=== PATIENT | female | born 1955 | race Caucasian/White ===

== ENCOUNTER 2020-05-22 13:49 | Outpatient (RCR) | payer MEDICARE, SELFPAY ==
[2020-05-22 14:02] VITALS: BMI 25.4
[2020-05-22 14:11] VITALS: BMI 25.4
== END 2020-08-06 09:16 | disposition home or self-care (01) ==
LOC: ANHDMC 13:49
PROVIDERS: PCP Family Medicine; Visit Provider Nurse Practitioner
DX: E11.65 Type 2 diabetes mellitus with hyperglycemia (principal); Z71.3 Dietary counseling and surveillance
CPT/HCPCS: 97802

== ENCOUNTER 2020-09-06 11:10 | Observation (INO) | payer MEDICARE, MEDICAID, SELFPAY ==
[2020-09-06] VITALS (11 sets, daily range): BP systolic 112–140; BP diastolic 49–81; PULSE 62–82; RESP 16–18; TEMP 36.1–36.8; O2SAT 93–99; BMI 25.2
--- NOTE | ~2020-09-06 | XR_ITS ---
EXAMINATION: XR chest 2V 09/06/2020 11:48 INDICATION: Chest pain PROCEDURE: 2 view chest COMPARISON: No prior studies for comparison. FINDINGS: The lungs are clear. There is coronary atherosclerosis. The cardiomediastinal silhouette is within normal limits. There are no pleural effusions. There is no pneumothorax suspected. IMPRESSION: 1: NO ACUTE CARDIOPULMONARY DISEASE. Reviewed, dictated and finalized at location A.
--- NOTE | 2020-09-06 11:18 | ECG_ITS ---
Measurements Intervals [place] Rate: 63 P: 41 [place]: 151 QRS: 15 QRSD: 70 T: 67 QT: 411 QTc: 422 Interpretive Statements SINUS RHYTHM DELAYED PRECORDIAL R/S TRANSITION LOW QRS VOLTAGE IN PRECORDIAL LEADS BASELINE ARTIFACT- I, III, AVR, AVL, AVF, V4-V6 BORDERLINE ECG Electronically Signed On 09-06-2020 11:21:37 CDT by Daryn Lau D.O.
[2020-09-06 11:44] LABS: Basophils Absolute Auto 0.1 K/mm3 (0.0-0.1); Basophils Percent Auto 0.5 % (0.2-1.2); Eosinophils Absolute Auto 0.3 K/mm3 (0-0.3); Eosinophils Percent Auto 2.9 % (0-4.4); Hematocrit 38.1 % (37.0-47.0); Hemoglobin 11.5 g/dL (12.0-15.0); Immature Granulocyte Absolute 0.05 K/mm3 (0.00-0.031); Immature Granulocyte Percent A 0.5 % (0-0.5); Lymphocytes Absolute Auto 2.97 K/mm3 (0.9-3.2); Lymphocytes Percent Auto 28.9 % (18.3-44.2); Mean Corpuscular HGB Conc 30.2 g/dl (32-36); Mean Corpuscular Hemoglobin 24.8 pg (26-34); Mean Corpuscular Volume 82.1 fl (80-100); Mean Platelet Volume 10.8 fl (7.4-10.4); Monocytes Absolute Auto 0.6 K/mm3 (0.1-0.6); Monocytes Percent Auto 5.6 % (2.6-8.5); Neutrophils Absolute Auto 6.3 K/mm3 (1.3-6.7); Neutrophils Percent Auto 61.6 % (45.5-73.1); Platelet Count Result 315 k/mm3 (150-375); Red Blood Count 4.64 M/mm3 (4.2-5.4); Red Cell Distribution Width 19.4 % (11.5-14.5); White Blood Count 10.3 K/mm3 (4.5-10.0)
[2020-09-06 11:54] LABS: Prothrombin Time 13.6 Seconds (11.1-14.7)
[2020-09-06 11:55] LABS: Partial Thromboplastin Time 24.1 SECONDS (22.3-36.8)
[2020-09-06 11:58] LABS: Anion Gap 7 mmol/L (8-16); Blood Urea Nitrogen 20 mg/dL (7-17); Carbon Dioxide 23 mmol/L (22-30); Chloride 103 mmol/L (98-107); Estimated CRCL calculation 57 ml/min; Estimated Glomerular Filt Rate > 60; Glucose 253 mg/dL (65-105); Sodium 133 mmol/L (137-145)
--- NOTE | 2020-09-06 12:06 | ED.CHESTPAIN ---
HPI - Chest Pain General Chief Complaint: Chest Pain Stated Complaint: CP Time Seen by Provider: 09/06/20 11:13 Source: patient and RN notes reviewed Limitations: no limitations History of Present Illness HPI narrative: Patient is 65 years old white female referred to our emergency room by her family physician because of retrosternal chest pain. Patient went see her family physician today for regular checkup and follow-up. During examination patient reported retrosternal chest discomfort lasts between few seconds up to 3 minutes, at rest, denies any radiation or shortness of breath. Patient received aspirin then referred to our emergency room for further evaluation. Currently patient is asymptomatic. History of diabetes, hypertension, hyperlipidemia, 5 stents, actively smoking. Related Data Allergies Allergy/AdvReac Type Severity Reaction Status Date / Time morphine AdvReac Gastrointestinal Verified 09/06/20 12:31 Upset nitroglycerin AdvReac Headache Verified 09/06/20 12:31 Review of Systems Review of Systems: Narrative: CONSTITUTIONAL: Denies fever, chills, or sweats. EYES: Denies visual changes, redness, or discharge. ENT: Denies rhinorrhea, congestion, sore throat, or otalgia. CARDIOVASCULAR: Denies chest pain, palpitations, or edema. RESPIRATORY: Denies cough or dyspnea. GASTROINTESTINAL: Denies abdominal pain, nausea, vomiting, or diarrhea. GENITOURINARY: Denies dysuria or hematuria. SKIN: Denies rash or itching. MUSCULOSKELETAL: Denies back pain, joint pain, or myalgia. NEUROLOGIC: Denies headache, numbness, or weakness. PSYCHIATRIC: Denies anxiety or depression. PMFSH Social History Social History Smoking status: Former smoker Alcohol intake: never Spiritual care concerns: No Exam Narrative: Exam Narrative: General appearance: Well-developed, well-nourished Skin: Normal color Head: Normocephalic, nontraumatic Eyes: Clear conjunctiva ENT: Oropharynx normal, ears normal, nose normal Neck: Supple, nontender Chest and respiratory: Airway patent, no respiratory distress, no accessory muscle use, diffuse tenderness of the chest mainly at the sternum with light palpation Heart: Regular rate/rhythm Abdomen: Soft, nontender, no organomegaly, quiet bowel sounds Vascular: Normal peripheral pulses, normal capillary refill. Musculoskeletal: Normal range of motion, nontender back Neurologic: Alert and oriented ?3, SENIOR COMMERCIAL LOAN OFFICER is normal as tested, no gross motor deficit Course Course Emergency Course: Stable, resolved, improved Consultations Consultation #1: DR KERR Date: 09/06/20 Time: 12:47 Vital Signs Vital signs: Vital Signs Temperature 36.8 C 09/06/20 11:09 Pulse Rate 63 09/06/20 11:09 Respiratory Rate 16 09/06/20 11:09 Blood Pressure 140/76 09/06/20 11:09 Pulse Oximetry 98 09/06/20 11:09 Temperature 36.8 C 09/06/20 11:09 Pulse Rate 64 09/06/20 11:19 Respiratory Rate 16 09/06/20 11:09 Blood Pressure 140/76 09/06/20 11:09 Pulse Oximetry 98 09/06/20 11:09 MDM - Chest Pain MDM Narrative Medical decision making narrative: Patient presents with retrosternal chest pain, physical exam showed diffuse tenderness across the chest mainly at the sternum. Musculoskeletal is a possibility. Because patient multiple risk factors of coronary artery disease. Labs, chest x-ray ordered. Further plan to follow Differential Diagnosis Differential diagnosis: Likely stable angina, atypical chest pain and costochondritis Lab Data Result diagrams: 09/06/20 11:30 09/06/20 11:30 Labs: Lab Results 09/06/20 09/06/20 09/06/20
[2020-09-06 12:09] LABS: Troponin I < 0.012 ng/mL (0.000-0.034)
--- NOTE | 2020-09-06 12:44 | PC.NURSE ---
Patient's lunch tray ordered for in patient room #232
[2020-09-06 13:16] LABS: Lipase 135 U/L (23-300)
--- NOTE | 2020-09-06 13:30 | PC.NURSE ---
Cardiology at bedside at this time. Will take patient to room 232 after assessment is complete
--- NOTE | 2020-09-06 13:38 | PM.IMHP ---
H&P: HPI History of Present Illness Date/Time: 09/06/20 13:38 this is a 65-year-old female patient who has a history of having coronary artery disease. She has a history having 5 cardiac stents. The patient stated that she has been having chest pain on and off for a long time. She has been seen by her ball truing machine operator who is at [facility] and she stated that she recently had a stress test and it was established that she did not have any further heart disease. However her ball truing machine operator dr. pacheco is out of town today. However the patient was seen her primary care doctor for unrelated issues. She was there for a regular checkup. The patient had substernal pain that was reproducible with touch. The pain lasted anywhere from a few seconds at 3 minutes. The patient denies any shortness of breath. The patient was sitting in the doctor's office when she developed the pain. She denies any strenuous activity. No recent injury. First troponin is negative. She no longer has any discomfort. The patient was sent to the emergency room from the primary care doctor's office. She received an aspirin then was referred to the emergency room for further evaluation. The patient stated that she has GERD and she also has history of pancreatitis in the past but this is a different type of pain. The patient recently had some moles removed from her chest which are felt dyeing machine tender. Have some periods of dizziness and presyncopal episodes but she has discussed this with her ball truing machine operator in the past. The patient also walks with a cane and has chronic back pain. Has COPD but this is not related to any type of pain she had today. Her chest x-ray was read as no acute cardiopulmonary disease. The patient was given Zofran and Tylenol in the emergency room. She stated that Her blood sugars are typically under control. However blood sugars 253 today. As sinus rhythm. Baseline artifact. Borderline EKG. Cardiology has been consulted. The patient is being admitted for observation status on the date of service of 09/06/2020. Chief Complaint: Chest pain Review of Systems Review of Systems: All systems reviewed & are unremarkable except as noted in HPI and below Constitutional: Constitutional: Reports as per HPI and Reports no additional constitutional complaints Eyes: Eyes: Reports as per HPI and Reports no additional eye complaints ENT: Reports system reviewed and no additional complaints, except as documented and Reports Normal hearing present Cardiovascular: Cardiovascular: Reports no additional cardiovascular complaints Respiratory: Respiratory: Reports no additional respiratory complaints and Reports no additional respiratory complaints Gastrointestinal: Gastrointestinal: Reports as per HPI and Reports no additional gastrointestinal complaints Musculoskeletal: Musculoskeletal: Reports no additional musculoskeletal complaints Integumentary/Breasts: Skin/Breast: Reports system reviewed and no additional complaints, except as docu and Reports as per HPI Neurologic: Reports system reviewed and no additional complaints, except as documented, Reports as per HPI and Reports Normal hearing present Psychiatric: Psychiatric: Reports no additional psychiatric complaints and Reports as per HPI Endocrine: Endocrine: Reports no additional endocrine complaints Hematologic/Lymphatic: Hematologic/Lymphatic: Reports no additional hematologic/lymphatic complaints Allergic/Immunologic: Allergic/Immunologic: Reports no additional allergic/immunologic complaints [facility] Past Medical History Medical History (Updated 09/06/20 @ 13:59 by Katherine Torres NP) CAD (coronary artery disease) Chronic GERD COPD (chronic obstructive pulmonary disease) DM2 (diabetes mellitus, type 2) History of myocardial infarction History of pancreatitis Hyperlipidemia Hypertension Obstructive sleep apnea Intolerance of CPAP Tobacco abuse Surgical History Surgical History (Updated
--- NOTE | 2020-09-06 13:51 | ADMGEN ---
This patient, Maureen Calzada, was admitted to IMU Room 232-01. Patient/family oriented to hospital policies and general routines including ID bracelet, bed and alarms, visiting hours, pain management, procedures, bathroom and other care routines, personal items, smoking policy, room service/diet, and visiting hours. Information on how to activate the Rapid Response Team has been discussed. Patient/Family are encouraged to report perceived risks to care and to ask questions if they do not understand what they are told or what they should do.
--- NOTE | 2020-09-06 13:52 | PM.CNCAR ---
Assessment and Plan Assessment and plan (1) Chest pain: Qualifiers: Chest pain type: unspecified Qualified Code(s): R07.9 - Chest pain, unspecified Code(s): R07.9 - Chest pain, unspecified Status: Acute Assessment and Plan: Patient is a 65-year-old white woman with history of coronary artery disease status post PCI with 5 stents (last approximately 2-3 years ago), status post myocardial infarction (2008), hypertension, hyperlipidemia, diabetes mellitus, active tobacco dependence (quit 08/28/2020 but still with occasional cigarettes; 20 pack-year), peripheral arterial disease, obstructive sleep apnea (intolerant of CPAP), COPD, pancreatitis, GERD, who is seen in cardiac consultation for chief complaint of chest pain. -Patient presents with brief atypical chest pain, with lower midsternal tenderness. Her presenting chest pain is currently resolved. -initial troponin I negative for injury and will continue to trend troponin I. -EKG demonstrated normal sinus rhythm, poor R-wave progression, without acute injury. - Began aspirin and continued her outpatient Plavix, in setting of her prior [place] and coronary stents with current atypical chest pain. - continued atorvastatin and obtain fasting lipid panel. -She reports that she had a good stress test approximately 1 month ago. -Obtain records with nursing assistance from [facility] Dr. Venkatesh Remy regarding patient's recent stress test approximately 1 month ago and recent echo, as well as last office note. -She will need close follow-up with her primary finished goods stock clerk a [facility], Dr. Venkatesh Remy. (2) CAD (coronary artery disease): Code(s): I25.10 - Atherosclerotic heart disease of [place] coronary artery without angina pectoris Status: Chronic Assessment and Plan: - she has a history of coronary artery disease status post PCI with 5 stents (last approximately 2-3 years ago), status post myocardial infarction (2008). - Began aspirin and continued her outpatient Plavix, in setting of her prior [place] and coronary stents with current atypical chest pain. - continued atorvastatin and obtain fasting lipid panel. - She reports that she had a good stress test approximately 1 month ago, and will obtain records. (3) Hyperlipidemia: Code(s): E78.5 - Hyperlipidemia, unspecified Status: Chronic Assessment and Plan: - continued atorvastatin and obtain fasting lipid panel. (4) Hypertension: Code(s): I10 - Essential (primary) hypertension Status: Chronic Assessment and Plan: - Blood pressure well controlled. - continue to monitor on current regimen. History of Present Illness History of Present Illness Consult date/time: 09/06/20 13:52 Patient is a 65-year-old white woman with history of coronary artery disease status post PCI with 5 stents (last approximately 2-3 years ago), status post myocardial infarction (2008), hypertension, hyperlipidemia, diabetes mellitus, active tobacco dependence (quit 08/28/2020 but still with occasional cigarettes; 20 pack-year), peripheral arterial disease, obstructive sleep apnea (intolerant of CPAP), COPD, pancreatitis, GERD, who is seen in cardiac consultation for chief complaint of chest pain. Her primary finished goods stock clerk is Dr. Venkatesh Remy with [facility]. Patient reports she was at her family physician for regular checkup when she had onset of lower midsternal chest discomfort which was intermittent lasting anywhere from 3 seconds to 3 minutes at a time. She reports her last chest discomfort occurred at noon on 09/06/2020. She denied any radiation of the discomfort but had some associated dyspnea. She received aspirin and was transferred to the emergency department for further evaluation. She reports that she had a good stress test approximately 1 month ago and also had a recent echo. She denies any change in her chronic exertional dyspnea. She byers
[2020-09-06 16:01] LABS: Hemoglobin A1C 7.7 % (<5.7)
[2020-09-06 16:16] LABS: Glucose Point of Care 153 (65-105)
[2020-09-06 16:23] LABS: Troponin I < 0.012 ng/mL (0.000-0.034)
[2020-09-06] MEDS: INSULIN GLARGINE (*BKC) 100 UNITS/ML 50 UNITS SUB-Q (16:58)
[2020-09-06] MEDS: glipiZIDE 5 MG TABLET PO (16:58)
[2020-09-06] MEDS: ALPRAZolam (*CRX) 0.5 MG TABLET 1 MG PO (17:12)
[2020-09-06 18:01] LABS: Troponin I < 0.012 ng/mL (0.000-0.034)
[2020-09-06 20:01] LABS: Glucose Point of Care 243 (65-105)
[2020-09-06] MEDS: ATORVASTATIN 40 MG TABLET PO (20:52)
[2020-09-06] MEDS: FAMOTIDINE 20 MG/2 ML VIAL IV PUSH (20:52)
[2020-09-06] MEDS: GABAPENTIN 100 MG CAPSULE PO (20:53)
[2020-09-06] MEDS: traZODone HCL 50 MG TABLET 100 MG PO (20:53)
[2020-09-07] VITALS (7 sets, daily range): BP systolic 99–114; BP diastolic 45–53; PULSE 73–90; RESP 18; TEMP 36.1–36.6; O2SAT 91–98
[2020-09-07 05:49] LABS: Basophils Absolute Auto 0.1 K/mm3 (0.0-0.1); Basophils Percent Auto 0.8 % (0.2-1.2); Eosinophils Absolute Auto 0.3 K/mm3 (0-0.3); Eosinophils Percent Auto 3.5 % (0-4.4); Hematocrit 36.6 % (37.0-47.0); Hemoglobin 11.1 g/dL (12.0-15.0); Immature Granulocyte Absolute 0.03 K/mm3 (0.00-0.031); Immature Granulocyte Percent A 0.4 % (0-0.5); Lymphocytes Absolute Auto 2.89 K/mm3 (0.9-3.2); Lymphocytes Percent Auto 34.8 % (18.3-44.2); Mean Corpuscular HGB Conc 30.3 g/dl (32-36); Mean Corpuscular Hemoglobin 24.4 pg (26-34); Mean Corpuscular Volume 80.6 fl (80-100); Mean Platelet Volume 10.8 fl (7.4-10.4); Monocytes Absolute Auto 0.6 K/mm3 (0.1-0.6); Monocytes Percent Auto 7.1 % (2.6-8.5); Neutrophils Absolute Auto 4.4 K/mm3 (1.3-6.7); Neutrophils Percent Auto 53.4 % (45.5-73.1); Platelet Count Result 297 k/mm3 (150-375); Red Blood Count 4.54 M/mm3 (4.2-5.4); Red Cell Distribution Width 19.2 % (11.5-14.5); White Blood Count 8.3 K/mm3 (4.5-10.0)
--- NOTE | 2020-09-07 06:00 | ECG_ITS ---
Measurements Intervals [place] Rate: 81 P: 51 [place]: 133 QRS: -2 QRSD: 81 T: 54 QT: 377 QTc: 439 Interpretive Statements SINUS RHYTHM LOW QRS VOLTAGE- DIFFUSE LEADS BORDERLINE R WAVE PROGRESSION, ANTERIOR LEADS BASELINE ARTIFACT- I, II, III BORDERLINE ECG Electronically Signed On 09-07-2020 10:26:30 CDT by Daryn Lau D.O.
[2020-09-07 06:03] LABS: Anion Gap 8 mmol/L (8-16); Blood Urea Nitrogen 21 mg/dL (7-17); Calcium 9.4 mg/dL (8.4-10.2); Carbon Dioxide 28 mmol/L (22-30); Chloride 105 mmol/L (98-107); Cholesterol 108 mg/dL (0-200); Estimated CRCL calculation 50 ml/min; Estimated Glomerular Filt Rate > 60; Glucose 134 mg/dL (65-105); HDL Direct 34 mg/dL; Magnesium 1.7 mg/dL (1.6-2.3); Potassium 3.8 mmol/L (3.4-5.0); Sodium 141 mmol/L (137-145); Triglycerides 163 mg/dL (<150)
[2020-09-07 06:14] LABS: LDL Cholesterol Direct 48 mg/dL
[2020-09-07] MEDS: GABAPENTIN 100 MG CAPSULE PO (06:21)
[2020-09-07] MEDS: FENOFIBRATE 160 MG TABLET PO (07:52)
[2020-09-07] MEDS: DULoxetine HCL 60 MG CAPSULE.DR PO (07:52)
[2020-09-07] MEDS: FLUTICASONE PROPIONATE 0.05% NA SPR 16 GM BTL (*BKC) 2 SPRAY NASAL (07:52)
[2020-09-07] MEDS: FAMOTIDINE 20 MG/2 ML VIAL IV PUSH (07:52)
[2020-09-07] MEDS: CLOPIDOGREL BISULFATE 75 MG TABLET PO (07:52)
[2020-09-07] MEDS: ASPIRIN 81 MG CHEWABLE TABLET PO (07:52)
[2020-09-07] MEDS: PANTOPRAZOLE 40 MG TABLET PO (07:52)
[2020-09-07] MEDS: lisinopriL 5 MG TABLET PO (07:52)
[2020-09-07] MEDS: INSULIN GLARGINE (*BKC) 100 UNITS/ML 50 UNITS SUB-Q (07:55)
[2020-09-07 07:58] LABS: Glucose Point of Care 110 (65-105)
[2020-09-07] MEDS: glipiZIDE 5 MG TABLET PO (07:58)
--- NOTE | 2020-09-07 09:20 | PM.PNCARD ---
Progress Note: A&P Assessment and Plan (1) CAD (coronary artery disease): Code(s): I25.10 - Atherosclerotic heart disease of [place] coronary artery without angina pectoris Status: Chronic Assessment and Plan: -Patient presents with brief atypical chest pain, with lower midsternal tenderness. Her presenting chest pain is currently resolved. -3 sets of cardiac enzymes negative for injury -no acute EKG changes - Cont aspirin and her outpatient Plavix. - continue atorvastatin. LDL at the goal -She reports that she had a good stress test approximately 1 month ago. -She will need to see her primary cotton ball bagger at [facility], Dr. Venkatesh Remy for fu as scheduled next week. (2) Hyperlipidemia: Code(s): E78.5 - Hyperlipidemia, unspecified Status: Chronic Assessment and Plan: Lipid panel looks good. Cont statin. TG are borderline for which pt could take 1-2 capsules of fish oil OTC (3) Hypertension: Code(s): I10 - Essential (primary) hypertension Status: Chronic Assessment and Plan: - Blood pressure well controlled. - continue to monitor on current regimen. Pt appears stable from cardiac standpoint. Disposition per PC. Fu with her primary cotton ball bagger at [facility], Dr. Venkatesh Remy as scheduled next week Subjective Date/time seen: 09/07/20 Patient was seen and examined, chart reviewed, case discussed with nurse. Pt feels much better today. No CP, SOB or palpitations. Eager to go home. States that has fu with her primary cotton ball bagger next week. Review of Systems Review of Systems: All systems reviewed & are unremarkable except as noted in HPI and below Constitutional: Constitutional: Reports as per HPI Eyes: Eyes: Reports as per HPI ENT: Reports system reviewed and no additional complaints, except as documented and Reports as per HPI Cardiovascular: Cardiovascular: Reports as per HPI Respiratory: Respiratory: Reports as per HPI Gastrointestinal: Gastrointestinal: Reports as per HPI Genitourinary: Genitourinary: Reports as per HPI Musculoskeletal: Musculoskeletal: Reports as per HPI Exam Const: General: no acute distress Nutritional Appearance: well nourished Orientation/consciousness: patient oriented x3 HENMT: Head: normal to inspection and atraumatic Ears: hearing grossly normal bilaterally Face and sinus: normal facial exam Eyes: General: appearance normal, both eyes and all related structures Pupils: Equal, round and reactive pupils present EOM: EOMs intact bilaterally Neck: Neck: supple Chest: Chest palpation & inspection: normal inspection of the chest Resp: Effort & Inspection: normal respiratory effort and no respiratory distress Auscultation: clear to auscultation bilaterally Cardio: Jugular venous distension: no JVD Rate: regular rate Heart sounds: S1 normal heart sound present, S2 normal heart sound present and no murmurs Peripheral pulses: Peripheral pulses 2+ throughout GI: GI Palp: No abdominal tenderness Auscultation: normal bowel sounds Skin: General skin exam: normal color Neuro: General: patient oriented x3 Cranial nerves: Yes Equal, round and reactive pupils present Extrem: General: normal to inspection and no clubbing, cyanosis or edema Objective Data Vital Signs Vital Signs: Vital Signs - 24 hr 09/06/20 11:09 09/06/20 11:19 09/06/20 12:23 Temperature 36.8 C Pulse Rate 63 64 69 Respiratory Rate 16 18 Blood Pressure 140/76 121/81 Pulse Oximetry 98 97 09/06/20 13:20 09/06/20 13:45 09/06/20 13:50 Temperature 36.2 C L Pulse Rate 62 65 65 Respiratory Rate 18 16 Blood Pressure 121/78 112/63 Pulse Oximetry 99 99 09/06/20 16:00 09/06/20 18:00 09/06/20 19:35 Temperature 36.2 C L Pulse Rate 73 79 Respiratory Rate 18 Blood Pressure 115/50 L Pulse Oximetry 97 93 09/06/20 20:00 09/06/20 22:00 09/07/20 00:00 Temperature 36.1 C L 36.4 C
--- NOTE | 2020-09-07 10:18 | PM.DS ---
DS: Admitting Diagnosis Admitting Diagnosis Admitting Diagnosis: Chest pain DS: Discharge Diagnosis Discharge Diagnosis (1) Chest pain: Qualifiers: Chest pain type: unspecified Qualified Code(s): R07.9 - Chest pain, unspecified Code(s): R07.9 - Chest pain, unspecified Status: Acute Assessment and Plan: Discharge Summary (Date of service 09/07/20): Ms. Calzada is a 65 y.o. female with PMH significant for CAD s/p PCI with 5 stents (last 2-3 years ago) and followed by Dr. Remy with [facility], hx of [place] in 2008, hypertension, hyperlipidemia, T2DM, active tobacco dependence w/ 20 pack-year smoking hx, peripheral arterial disease, SUSAN w/ CPAP intolerance, COPD, GERD who presented to the emergency department on 09/06/20 for the evaluation of chest pain. She was at an appointment with her primary care doctor when she reported retrosternal chest discomfort, not associated with exertion, lasting for a few seconds to 3 minutes. She had no associated dyspnea, radiation, or pleuritic component. She was given aspirin and sent to the emergency department for further care. Vitals were stable on arrival to the emergency department. WBC 10,300, Hb 11.5, Hct 38.1. sodium 133, troponin I <0.012. EKG demonstrated sinus rhythm with no acute ST/T changes. CXR was unremarkable. Cardiology was consulted and she was admitted to the IMU under the hospitalist service. Her pain was reproducible on exam. Troponin at 3 and 6 hours was <0.012. Repeat EKG had no concerning change. Lipase was normal. Telemetry was monitored and demonstrated sinus rhythm. She reported that she had a recent stress test per her retail customer service specialist, Dr. Remy, approximately 1 month ago for these complaints which she noted was normal. Her pain resolved. She was seen by cardiology who recommended that she begin aspirin in addition to her plavix. LDL was at target. Her pain resolved completely. Her chest pain was felt atypical, not secondary to acute coronary syndrome, and she was felt stable for discharge from a cardiology standpoint. She was discharged in hemodynamically stable condition on the morning of 09/07/20. Worrisome signs and symptoms which would warrant return to the emergency department were discussed and she verbalized understanding. She was advised to keep her follow-up appointment with Dr. Remy which she reported was next week. Smoking cessation was advised. (2) CAD (coronary artery disease): Code(s): I25.10 - Atherosclerotic heart disease of [place] coronary artery without angina pectoris Status: Chronic Assessment and Plan: She reported a recent stress test approximately 1 month ago which was good. Her primary retail customer service specialist is Dr. Remy. Cardiology was consulted and recommended she continue plavix and add aspirin. Atorvastatin was continued and LDL is at goal. (3) DM2 (diabetes mellitus, type 2): Code(s): E11.9 - Type 2 diabetes mellitus without complications Status: Chronic Assessment and Plan: Hemoglobin A1c was 7.7%. Blood sugars were reasonable. Farxiga and glipizide were continued at discharge and she needs to follow-up with her PCP for diabetes management. (4) Hypertension: Code(s): I10 - Essential (primary) hypertension Status: Chronic Assessment and Plan: Blood pressures were at target. Her home antihypertensive regimen of lisinopril was continued. (5) COPD (chronic obstructive pulmonary disease): Code(s): J44.9 - Chronic obstructive pulmonary disease, unspecified Status: Chronic Assessment and Plan: Not in acute exacerbation. Albuterol was continued. (6) Hyperlipidemia: Code(s): E78.5 - Hyperlipidemia, unspecified Status: Chronic Assessment and Plan: Atorvastatin was continued. (7) Chronic GERD: Code(s): K21.9 - Gastro-esophageal reflux disease without esophagitis Status: Chronic Assessment and Plan
== END 2020-09-07 11:11 | disposition home or self-care (01) ==
LOC: ANHED 11:21 → ANHIMU 12:42
PROVIDERS: Nurse Practitioner; Physician Assistant; Admitting Provider Internal Medicine; Emergency Provider Emergency Medicine; PCP Family Medicine; Visit Provider Hospitalist
DX: R07.89 Other chest pain (principal); I25.10 Atherosclerotic heart disease of native coronary artery without angina pectoris; I10 Essential (primary) hypertension; I25.2 Old myocardial infarction; E11.9 Type 2 diabetes mellitus without complications; E78.5 Hyperlipidemia, unspecified; F17.210 Nicotine dependence, cigarettes, uncomplicated; G47.33 Obstructive sleep apnea (adult) (pediatric); J44.9 Chronic obstructive pulmonary disease, unspecified; K21.9 Gastro-esophageal reflux disease without esophagitis; Z95.5 Presence of coronary angioplasty implant and graft; Z79.02 Long term (current) use of antithrombotics/antiplatelets; Z79.4 Long term (current) use of insulin
CPT/HCPCS: 36415; 71046; 80048; 80061; 82948; 83036; 83690; 83735; 84484; 85025; 85610; 85730; 93005; 96374; 96376; 99285; A9270; G0378; J1815

== ENCOUNTER 2023-11-05 14:43 | Emergency (ER) | payer OTHER, SELFPAY ==
[2023-11-05 14:52] VITALS: BP 109/59; PULSE 77; RESP 16; TEMP 36.4; O2SAT 97
== END 2023-11-05 18:21 | disposition left against medical advice (07) ==
PROVIDERS: PCP Family Medicine
DX: R42 Dizziness and giddiness (principal)
CPT/HCPCS: 99199

== ENCOUNTER 2024-06-29 09:41 | Outpatient (CLI) | payer MEDICARE, MEDICAID, SELFPAY ==
--- NOTE | ~2024-06-29 | CT_ITS ---
EXAMINATION: CT diagnostic chest w con DATE: 06/29/2024 11:01 INDICATION: LUNG CA TECHNIQUE: Computed tomography (CT) of the chest was performed without intravenous contrast. Addition al 3D reconstructions utilizing coronal maximum intensity projection (MIP) were performed. Automated exposure control and iterative reconstruction technique were employed. The dose-length product was 13 3.97 mGy-cm. COMPARISON: 12/09/2018 FINDINGS: Change of interval right lower lobectomy with volume loss in the right hemithorax and suture lines at the right hilum. There is mild linear pleural parenchymal scarring in the right upper lobe. No pneum onia, pulmonary edema, suspicious pulmonary nodules or pleural effusion. Heart size is normal. Athero sclerotic coronary artery calcifications. Thoracic aorta is normal in caliber with no dissection. No pathologically enlarged thoracic lymphadenopathy. A couple likely benign subcentimeter nodules and co arse calcification in the left thyroid lobe. Small amount of pneumobilia likely related to prior chol ecystectomy and hysterectomy with surgical clips the gallbladder fossa. Thoracic levocurvature with m ild spondylosis. IMPRESSION: 1. Status post right lower lobectomy likely for reported lung cancer. No evident recurrent or metasta tic disease. Reviewed, dictated and finalized at location B. 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 Status post right lower lobectomy likely for reported lung cancer. No eviden t recurrent or metastatic disease.
[2024-06-29 10:46] LABS: Basophils Absolute Auto 0.1 K/mm3 (0.0-0.1); Basophils Percent Auto 0.9 % (0.2-1.2); Eosinophils Absolute Auto 0.3 K/mm3 (0-0.3); Eosinophils Percent Auto 3.7 % (0-4.4); Hematocrit 42.4 % (37.0-47.0); Hemoglobin 12.2 g/dL (12.0-15.0); Immature Granulocyte Absolute 0.02 K/mm3 (0.00-0.031); Immature Granulocyte Percent A 0.3 % (0-0.5); Lymphocytes Absolute Auto 2.59 K/mm3 (0.9-3.2); Lymphocytes Percent Auto 36.9 % (18.3-44.2); Mean Corpuscular HGB Conc 28.8 g/dl (32-36); Mean Corpuscular Hemoglobin 23.5 pg (26-34); Mean Corpuscular Volume 81.7 fl (80-100); Monocytes Absolute Auto 0.5 K/mm3 (0.1-0.6); Monocytes Percent Auto 6.6 % (2.6-8.5); Neutrophils Absolute Auto 3.6 K/mm3 (1.3-6.7); Neutrophils Percent Auto 51.6 % (45.5-73.1); Platelet Count Result 199 k/mm3 (150-375); Red Blood Count 5.19 M/mm3 (4.2-5.4); Red Cell Distribution Width 19.9 % (11.5-14.5)
[2024-06-29 10:54] LABS: Estimated Glomerular Filt Rate > 60
[2024-06-29 11:20] LABS: Iron 48 ug/dL (37-170)
[2024-06-29 11:26] LABS: Platelet Estimate Adequate (Adequate)
[2024-06-29 11:27] LABS: Anisocytosis 1+; Burr Cells 1+; Hypochromasia 2+; Ovalocytes 1+; Polychromasia 1+
[2024-06-29 11:28] LABS: Schistocytes None Seen
[2024-06-29 11:29] LABS: Percent Iron Saturation 11 % (20-50)
[2024-06-29 11:58] LABS: Ferritin 7.68 ng/mL (11.1-264)
[2024-06-29 12:12] LABS: Hepatitis C Virus Antibody Negative (Negative)
[2024-06-29 13:10] LABS: Creatinine Urine 45.1 mg/dL
[2024-06-29 13:14] LABS: MALB Creatinine Ratio 168.5 mg/g (0-30)
[2024-06-29 13:31] LABS: Hemoglobin A1C 12.7 % (<5.7)
== END 2024-06-29 09:42 | disposition home or self-care (01) ==
PROVIDERS: PCP Family Medicine; Visit Provider Registered Nurse
DX: C34.31 Malignant neoplasm of lower lobe, right bronchus or lung (principal); E11.42 Type 2 diabetes mellitus with diabetic polyneuropathy; F01.50 Vascular dementia, unspecified severity, without behavioral disturbance, psychotic disturbance, mood disturbance, and anxiety; K21.9 Gastro-esophageal reflux disease without esophagitis; N32.81 Overactive bladder; M25.552 Pain in left hip; D64.9 Anemia, unspecified
CPT/HCPCS: 36415; 71260; 82043; 82728; 83036; 83540; 83550; 85025; 85055; 86803; Q9967

== ENCOUNTER 2024-11-24 11:41 | Outpatient (CLI) | payer MEDICARE, MEDICAID, SELFPAY ==
--- NOTE | ~2024-11-24 | MM_ITS ---
EXAMINATION: MM screening ron BI w tayler HISTORY: Screening TECHNIQUE: Craniocaudal and mediolateral oblique 3-D tomosynthesis images were obtained and synthetic 2-D images were generated. CAD analysis was submitted and interpreted. COMPARISON: Comparison to multiple prior studies sequentially, with oldest reviewed study dated 07/2017. BREAST PARENCHYMAL COMPOSITION: Not dense: There are scattered areas of fibroglandular density. FINDINGS: There is no evidence of suspicious mass, calcification, or architectural distortion to sugg est malignancy in either breast. There has been no suspicious interval change. IMPRESSION: 1. No mammographic evidence of malignancy. 2. Recommend routine screening mammography in one year. BI-RADS Category 1: Negative Reviewed, dictated and finalized at location B.
[2024-11-24 12:25] LABS: Basophils Absolute Auto 0.1 K/mm3 (0.0-0.1); Basophils Percent Auto 0.7 % (0.2-1.2); Eosinophils Absolute Auto 0.4 K/mm3 (0-0.3); Eosinophils Percent Auto 4.1 % (0-4.4); Hematocrit 37.6 % (37.0-47.0); Hemoglobin 10.5 g/dL (12.0-15.0); Immature Granulocyte Absolute 0.05 K/mm3 (0.00-0.031); Immature Granulocyte Percent A 0.5 % (0-0.5); Lymphocytes Absolute Auto 2.77 K/mm3 (0.9-3.2); Lymphocytes Percent Auto 27.7 % (18.3-44.2); Mean Corpuscular HGB Conc 27.9 g/dl (32-36); Mean Corpuscular Hemoglobin 23.1 pg (26-34); Mean Corpuscular Volume 82.6 fl (80-100); Mean Platelet Volume 11.3 fl (7.4-10.4); Monocytes Absolute Auto 0.7 K/mm3 (0.1-0.6); Monocytes Percent Auto 6.8 % (2.6-8.5); Neutrophils Percent Auto 60.2 % (45.5-73.1); Platelet Count Result 222 k/mm3 (150-375); Red Blood Count 4.55 M/mm3 (4.2-5.4); Red Cell Distribution Width 19.1 % (11.5-14.5)
--- OUTSIDE RECORDS SUMMARY | 2024-11-24 12:36 | XMS_ITS | Encounter Summary ---
Author Organization [facility] Address [address] [facility] [place] [address] Phone Care Team Providers Care Extension Supervisor Name Role Phone Arie Mclaughlin MD Unavailable [phone] Carter Jackson MD Primary Care Provider Encounter Details Date Type Department Care Team (Late st Contact Info) Description 10/22/2023 Nursing Facility [facility] [address] [place] [phone] Drake Subramanian, PAC [address] [place], [place] [id number] Social History Tobacco Use Types Packs/Day Years Used Date Smoking Tobacco: Former Cigarettes 0 10/29/1975 - 10/29/2015 Smokeless Tobacco: Never Comments:pt has not been smo leonard much at all Alcohol Use Standard Drinks/Week Comments No 0 (1 standard drink = 0.6 oz pur e alcohol) Comments No Sex and Gender Information Value Date Recorded Sex Assigned at Not on file Legal Sex Female 7:14 PM CDT Gender Identity Not on file Sexual Orientation Not on file documented as of this encounter Progress Notes * Drake Subramanian, NAHED - 10/22/2023 3:08 PM CDT [facility] PROGRESS NOTE Maureen Calzada is a 68 y.o. female at [facility] for rehabilitation. 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 Subjective: Interval History: I am seeing patient today for a skilled visit. Lying comfortably in bed. Says that her bilateral lower extremity pain is still bothering her a lot. No recent changes to this. Difficulty sleeping at night with pain. No acute concerns. Nursing staff with no concerns about patient. Past Medical History Positives Diagnosis Date Anxiety Benign essential hypertension Diabetes mellitus (HCC) Pancreatitis Polyneuropathy Family History Problem Relation Age of Onset Other-comment Mother vascular disease Heart Disease Mother enlarged heart Heart Surgery Mother Chronic Lung Disease Mother Hypertension Mother No Known Problems Father Cancer Maternal Grandmother Hypertension Maternal Grandmother No Known Problems Maternal Grandfather Other-comment Paternal Grandmother back problems/ surgery Hypertension Paternal Grandmother High Cholesterol Paternal Grandmother High Cholesterol Paternal Grandfather Hypertension Paternal Grandfather Social History Socioeconomic History Marital status: Spouse name: Not on file Number of children: Not on file Years of education: Not on file Highest education level: Not on file Occupational History Not on file Tobacco Use Smoking status: Former Years: 40 Types: Cigarettes Quit date: 10/29/2015 Years since quittin.9 Smokeless tobacco: Never Tobacco comments: pt has not been smoking much at all Vaping Use Vaping Use: Never used Substance and Sexual Activity Alcohol use: No Alcohol/week: 0.0 oz Drug use: No Sexual activity: Not on file Other Topics Concern Not on file Social History Narrative Not on file Social Determinants of Health Financial Resource Needs: Not on file Food Insecurity Needs: Not on file Transportation Needs: Not on file Physical Activity: Not on file Stress: Not on file Social Integration: Not on file Intimate Partner Violence: Not on file Housing Stability: Not on file Past Surgical History: Procedure Laterality Date CARDIAC CATHERIZATION CATARACT REMOVAL 12/14/2017 left eye ERCP ERCP 06/29/2017 ERCP 06/26/2017 GALLBLADDER SURGERY 1998 HC PANCREATIC STENT C HYSTERECTOMY Review of Systems: A 14 point comprehensive review of systems was negative except what is documented in interval history above. Objective: Exam: Vital Signs: Recent vital signs were reviewed in the electronic medical records at nursing facility and are unremarkable. General: Well developed, well nourished, in no distress Skin: Normal appearance, normal turgor, no rashes - well-healing surgical incision sites over left lower extremity and a large vertical abdominal surgical incision site closed with vinnie HEENT: Normocephalic, atraumatic, no flaring Eyes: nonicteric, intact extra occular movement, PERRL Neck: normal, supple, no lymphadenopathy Heart: regular rate and rhythm, S1, S2 normal, no murmur, click, rub or gallop Lungs: clear to ausculation, normal respirations with no accessory muscle use, normal rate Abdominal: soft, non-tender; bowel sounds normal; no masses, no organomegaly Extremities: no deformities, joint mobility appears intact, no clubbing - 2+ dorsalis pedis pulse in both lower extremities, brisk cap refill throughout Neuro: Non-focal, CN intact, sensory and motor intact Psychological: alert and oriented X3, appropriate mood and affect, Intact judgement and memory Lab Results: 10/15/2023: CMP with glucose 298, sodium 135 otherwise unremarkable. CBC with hemoglobin 10.7, platelet count 522 otherwise unremarkable. Vitamin D level low at 20. Thyroid panel within normal limits. Imaging: None Assessment/Plan: Peripheral vascular disease in bilateral lower extremities Had bilateral iliac stents placed in August, the developed a large arterial thrombus and underwent aorta to bifemoral bypass Continue aspirin, Plavix and statin therapy Will need to follow-up with vascular surgery in about 1 month. 10/15/2023: Patient having uncontrolled pain the last 1 month. Definite neuropathic component. Gooddistal pulses and cap refill. Will increase her gabapentin. She has scheduled methocarbamol. P.r.n.[place]. The Cymbalta will help with the neuropathy as well 10/21: Not well controlled. Normal distal pulses. Will increase the gabapentin again. Insulin-dependent diabetes mellitus Was on metformin previously Continue basal and bolus insulin therapy Monitor Accu-Cheks 10/22/2023 blood sugars fluctuating. I gently increased her Lantus. Hypertension Continue losartan and metoprolol Monitor blood pressures 10/22/2023 well controlled Other chronic medical conditions include History of lung cancer status post VATS with right lower lobe lobectomy, COPD, asthma, GERD, depression, anxiety, hyperlipidemia, vitamin-D deficiency Stable Continue home regimen VTE Prophylaxis: Patient Low Risk I discussed advanced care planning with this patient. This note was dictated using [employer] fluency dictation system and there may be errors in head silverman. Despite proof reading the note, there may be mistakes and I apologize for those. By: NAHED Caballero, 10/22/2023 3:09 PM CDT documented in this encounter Plan of Treatment Not on file documented as of this encounter Visit Diagnoses Not on filedocumented in this encounter Care Teams Extension Supervisor Relationship Specialty Start Date End Date Carter Jackson MD [address] [address] PCP - General Family Medicine 11/03/17 Arie Mclaughlin MD Consulting Physician Neurology 05/23/15 05/01/24 documented as of this encounter
--- OUTSIDE RECORDS SUMMARY | 2024-11-24 12:36 | XMS_ITS | Encounter Summary ---
Author Organization [facility] Address [address] [facility] [place] [address] Phone Care Team Providers Care Mileage Clerk Name Role Phone Arie Mclaughlin MD Unavailable [phone] Carter Jackson MD Primary Care Provider [phone] Reason for Visit * Reason Onset Date Comments Medication Refill 10/26/2023 Encounter Details Date Type Department Care Team (Late st Contact Info) Description 10/26/2023 Refill [facility] [address] [place] [phone] Drake Subramanian, [facility] [address] [place], [place] [phone] Medication Refill Social History Tobacco Use Types Packs/Day Years [...] on file documented as of this encounter Plan of Treatment Not on file documented as of this encounter Visit Diagnoses Diagnosis Other chronic pain- Primary documented in this encounter Care Teams Mileage Clerk Relationship Specialty Start Date End Date Carter Jackson MD [facility] [address] [place] [id number] PCP - General Family Medicine 11/03/17 Arie Mclaughlin MD Consulting Physician Neurology 05/23/15 05/01/24 documented as of this encounter
--- OUTSIDE RECORDS SUMMARY | 2024-11-24 12:36 | XMS_ITS | Encounter Summary ---
Author Organization [facility] Address [address] [facility] [place] [address] Phone Care Team Providers Care Road Supervisor Name Role Phone Arie Mclaughlin MD Unavailable [phone] Carter Jackson MD Primary Care Provider [phone] Encounter Details Date Type Department Care Team (Late st Contact Info) Description 10/15/2023 Nursing Facility [facility] [address] [place] [phone] Drake Subramanian, PAC [address] [place], [place] [id number] Other chronic pain (Primary Dx); Anxiety Social History Tobacco Use Types Packs/Day Years [...] of this encounter Progress Notes * Drake Subramanian PAC - 10/15/2023 11:48 AM CDT [facility] PROGRESS NOTE Maureen Calzada is a 68 y.o. female at [facility] for rehabilitation. 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 Subjective: Interval History: I am seeing patient today for a skilled visit. Just admitted facility yesterday. She is lying comfortably in bed. Is complaining of uncontrolled pain and numbness in distal aspect of bilateral lower extremities. This has been present for the last month. Her legs feel ???frozen?? . Should be noted that she is on Lipitor but this is on her allergy list and the reaction is nausea/vomiting. I discussed this with her and she is unaware of any side effect when taking Lipitor in the past so we will give this to her. Past Medical History Positives Diagnosis Date Anxiety [...] CATHERIZATION CATARACT REMOVAL 12/14/2017 left eye ERCP GALLBLADDER SURGERY 1997 HC PANCREATIC STENT C HYSTERECTOMY Review of [...] deformities, joint mobility appears intact, no clubbing Neuro: Non-focal, CN intact, sensory and motor intact Psychological: alert and oriented X3, appropriate mood and affect, Intact judgement and memory Lab Results: 10/15/2023: CMP with glucose 298, sodium 135 otherwise unremarkable. CBC with hemoglobin 10.7, platelet count 522 otherwise unremarkable. Vitamin D level low at 20. Thyroid panel within normal limits. Imaging: None Assessment/Plan: Generalized weakness and deconditioning Receiving intermediate care and physical therapy rehabilitation Peripheral vascular disease in bilateral lower extremities [...] increase her gabapentin. She has scheduled methocarbamol. P.r.n.[place]. The Cymbalta will help with the neuropathy as well Insulin-dependent diabetes mellitus Was on metformin previously Continue basal and bolus insulin therapy Monitor Accu-Cheks Hypertension Continue losartan and metoprolol Monitor blood pressures 10/15/2023 well controlled Other chronic medical conditions include History of lung cancer status post VATS with right lower lobe lobectomy, COPD, asthma, GERD, depression, anxiety, hyperlipidemia, vitamin-D deficiency Stable Continue home regimen VTE Prophylaxis: Patient Low Risk I discussed advanced care planning with this patient. This note was dictated using [employer] fluency dictation system and there may be errors in advertising account executive. Despite proof reading the note, there may be mistakes and I apologize for those. By: NAHED Caballero, 10/15/2023 11:48 AM CDT documented in this encounter Plan of Treatment Not on file documented as of this encounter Visit Diagnoses Diagnosis Other chronic pain- Primary Anxiety Anxiety state, unspecified documented in this encounter Care Teams Road Supervisor Relationship Specialty Start Date End Date Carter Jackson MD [address] [address] PCP - General Family Medicine 11/03/17 Arie Mclaughlin MD Consulting Physician Neurology 05/23/15 05/01/24 documented as of this encounter
--- OUTSIDE RECORDS SUMMARY | 2024-11-24 12:36 | XMS_ITS | Encounter Summary ---
Author Organization [facility] Address [address] [facility] [address] Phone Care Team Providers Care Sign Hanger Supervisor Name Role Phone Arie Mclaughlin MD Unavailable Carter Jackson MD Primary Care Provider [phone] Encounter Details Date Type Department Care Team (Late st Contact Info) Description 10/16/2023 Nursing Facility [facility] [address] [place] [phone] Maxime Clifford MD [address] [place] [address] Social History Tobacco Use Types Packs/Day Years [...] on file documented as of this encounter H&P Notes * Maxime Clifford MD - 10/16/2023 12:36 PM CDT .[facility] History and Physical Chief Complaint: Arterial thrombus s/p aortofemoral bypass HPI: Maureenmichelle Calzada is a 68 y.o. female who has transferred to [facility] for post-acute careand rehabilitation. Prior to coming to the rehabilitation facility the patient was hospitalized at [facility] from 09/30/2023 through 10/14/2023. She had bilateral iliac stents placed 1 month prior. 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 Patient underwent open aortofemoral bypass with graft, aortic endarterectomy fasciotomies on 09/30/23. At the time of this assessment, the patient said that she is in constant pain all the time in her feet and legs and that she cannot feel her feet. Reported good appetite. History obtained from: patient, medical records Review of External Records: [facility] records Allergies: is allergic to morphine sulfate, other, simvastatin, and oxycodone. Past Medical History: She has a past medical history of Anxiety, Benign essential hypertension, Diabetes mellitus (HCC), Pancreatitis, and Polyneuropathy. Surgical History: has a past surgical history that includes Cardiac Catherization; Hysterectomy; Gallbladder Surgery (1997); ERCP; Cataract Removal (12/14/2017); hc pancreatic stent c; Ercp (06/29/2017); and Ercp (06/26/2017). Social History: reports that she quit smoking about 7 years ago. She has never used smokeless tobacco. She reports that she does not drink alcohol and does not use drugs. Physical Exam: Vital Signs: All vitals were reviewed in the facility EMR and are stable. Exam: General: Well developed, well nourished, in no distress, elderly Skin: pallor, normal turgor, no rashes, vinnie in LLE and abdomen appear clean and dry HEENT: Normocephalic, atraumatic, no flaring Eyes: nonicteric, intact extra ocular movement, PERRL Neck: normal, supple, no lymphadenopathy Heart: regular rate and rhythm, S1, S2 normal, no murmur, click, rub or gallop Lungs: clear to auscultation, normal respirations, normal precautions Abdominal: soft, non-tender; bowel sounds normal; no masses, no organomegaly : external genitalia normal in appearance Extremities: no deformities, joint mobility appears intact, no clubbing, bilateral Hallux valgus, LLE weakness - reduced ankle flexion and extension Neuro: Non-focal, CN intact, sensory and motor intact Psychological: alert and oriented X3, appropriate mood and affect, Intact judgement and memory Data Review: Lab Results: 10/15/2023: CMP with glucose 298, sodium 135 otherwise unremarkable. CBC with hemoglobin 10.7, platelet count 522 otherwise unremarkable. Vitamin D level low at 20. Thyroid panel within normal limits. Imaging: No new imaging. Orders: - Apply Lidoderm patch to LLE - Recheck labs Wednesday 10/18 with CBC and BMP Assessment/Plan: Peripheral vascular disease in bilateral lower extremities. The patient had bilateral iliac stents placed in August 2023 then developed a large arterial thrombus and underwent aorta to bifemoral bypass. Continue aspirin, Plavix, and statin therapy. Patient has Lipitor listed as medication allergy with indication of nausea/vomiting but this medication has been started after discussing with patient and pt denying any side effects. Will need to follow-up with vascular surgery in about 1 month. BLE pain, underlying PNP and recent surgery. The patient's gabapentin dose was increased yesterday 10/15/23. She also has Cymbalta, scheduled methocarbamol, and prn [place]. I will add topical Lidoderm patches to her regimen. Diabetes Mellitus Type 2, insulin dependent. She was previously on metformin. Now to continue management with basal bolus insulin therapy. Monitor Accu-checks at the SNF and adjust dosage if needed. Patient has also been encouraged to follow a diabetic diet. Check A1c periodically as outpatient. Hypertension. BP stable. Continue management with losartan and metoprolol. Monitor vital signs while at the SNF. Hx of lung cancer. S/p VATS with right lower lobe lobectomy. COPD, asthma. No acute respiratory distress. Continue PRN inhaler for wheezing. Depression and Anxiety. The patient's mood currently appears stable and no reported psychological distress at this time. Continue management with Seroquel, Prozac and prn Xanax. Vitamin D Deficiency. Continue supplementation. GERD. No acute symptoms. Continue PPI therapy with Protonix. Generalized weakness and decreased mobilization. The patient is to receive PT and OT at the SNF to improve strength, balance, and mobility back to baseline. VTE Prophylaxis: Mobilization. Also on aspirin Fall Care Plan Review: Patient has been educated on fall precautions and will be closely monitored. Pressure Ulcer Prevention Plan: Mobilization. Disposition and escalation or reduction of care: The patient is to receive post- acute care and complete PT and OT at the SNF to improve strength, balance, and mobility back to baseline with the goal of discharging to home. Advance Care Planning: Aggregate [id number] time, greater than 16 minutes was spent discussing end-of-life care planning with patient/family and/or Power of Hall Cleaner. Discussed CPR, Intubation, treatment goals, and Quality of life/Intensity of care. Patient desires No CPR-Selective Treatment Polst Form Completed. I, Robel Miller, acting as a scribe, am personally taking down the notes in the presence of Dr. Maxime Clifford M.D. Take no action on this note until reviewed and authenticated by the physician. By: ROBEL MILLER, 10/16/2023 Primary Care Physician: CARTER JACKSON MD I evaluated and examined the patient in presence of scribe ROBEL MILLER and reviewed the medical records and the notes above and agree with the content and details of the notes. By: Maxime Clifford M.D. documented in this encounter Plan of Treatment Not on file documented as of this encounter Visit Diagnoses Not on filedocumented in this encounter Care Teams Sign Hanger Supervisor Relationship Specialty Start Date End Date Carter Jackson MD [address] [place] [id number] PCP - General Family Medicine 11/03/17 Arie Mclaughlin MD Consulting Physician Neurology 05/23/15 05/01/24 documented as of this encounter
--- OUTSIDE RECORDS SUMMARY | 2024-11-24 12:36 | XMS_ITS | Clinical Summary ---
Author Organization [facility] Address [address] [place] [address] Care Team Providers Care Loom Repairer Name Role Phone Carter Jackson MD Primary Care Provider Source Comments [facility],non-owned Affiliates and Associated Physician Practices is amultiple site organization consisting of ambulatory clinics and hospital sitesin [place], [place], [place] and [place]. This disclosure is being madepursuant to the Care Everywhere program and may not contain all information available regarding this patient. Last updated 18.[facility] Allergies Active Allergy Reactions Criticality Noted Date Comments Morphine Nausea and/or Vomiting Low 01/19/2017 Oxycodone Other Low 01/30/2015 Made her sick. Peanut-Derived Unknown 04/29/2023 Medications * Be aware that medications may not be up to date on this document. Alwaysverify current medications with the patient. albuterol (Proventil;Vent stefan) (2.5 MG/3ML) 0.083% nebulizer solution Inhale 2.5 (two and one-half) mg by mouth as needed Active albuterol HFA (Proventil; Ventolin; Proair) 108 (90 Base) MCG/ACT inhaler Inhale 2 (two) puffs by mouth every 4 hours as needed for Shortness of Breath, Wheezing or Cough Active ALPRAZolam (Xanax) 1 MG tablet Take 1 (one) tablet by mouth nightly as needed for Anxiety Active atorvastatin (Lipitor) 40 MG tablet Take 1 (one) tablet by mouth once daily Active dapagliflozin propanediol (Farxiga) 10 MG tablet Take 1 (one) tablet by mouth every morning Active DULoxetine (Cymbalta) 60 MG capsule Take 1 (one) capsule by mouth once daily Active FLUoxetine (PROzac) 20 MG capsule Take 1 (one) capsule by mouth once daily Active gabapentin (Neurontin) 100 MG capsule Take 1 (one) capsule by mouth 3 times daily 06/04/20 22 Active metoprolol tartrate IR (Lopressor) 25 MG tablet Take 1 (one) tablet by mouth 2 times daily Active nystatin (Mycostatin) 460577 UNIT/GM powder Apply to affected area once daily For 7 days 07/03/19 Active oxyBUTYnin CR 24hr (Ditropan-XL) 5 MG tablet Take 1 (one) tablet by mouth once daily Active pantoprazole EC (Protonix) 20 MG tablet Take 1 (one) tablet by mouth once daily Active fluticasone-ume clidin-vilant (Trelegy Ellipta) 200-62.5-25 MCG/ACT inhaler Inhale 1 (one) puff by mouth every 24 hours Active cetirizine (ZyrTEC) 10 MG tablet Take 1 (one) tablet by mouth once daily 02/17/20 23 Active sucralfate (Carafate) 1 GM tablet Take 1 (one) tablet by mouth 2 times daily Active clopidogrel (plaVIX) 75 MG tablet Take 1 (one) tablet by mouth once daily 04/08/20 23 Active famotidine (Pepcid) 40 MG tablet Take 1 (one) tablet by mouth once daily 04/08/20 23 Active insulin detemir (Levemir) vial Inject 25 (twenty five) Units subcutaneously twice daily, before breakfast & at bedtime. for 30 days 05/05/20 Active lidocaine (Lidoderm) 5 % patch Apply 1 (one) patch to skin every 24 hours Apply patch to most painful area and remove after 12 hours. May reapply a new patch 12 hours later. 05/05/20 23 Active lisinopril (Prinivil; Zestril) 5 MG tablet Take 1 (one) tablet by mouth once daily 05/06/20 23 Active insulin aspart (NovoLOG) cartridge Inject 0 (zero) Units to 6 (six) Units subcutaneously 3 times daily with meals Low Dose: Correction Insulin BG (mg/dL) Corrective Action LESS than 70 follow Hypoglycemic guidelines, 70-180 NO Correction insulin 181-220 GIVE 2 units of insulin 221-260 GIVE 3 units of insulin 261-300 GIVE 4 units of insulin 301-350 GIVE 5 units of insulin Greater than 350 GIVE 6 units of insulin and Notify Physician 05/05/20 Active Active Problems Problem Noted Date Diagnosed Date Diabetic ketoacidosis withou t coma associated with type 2 diabetes mellitus 04/24/2023 Cardiomyopathy 02/20/2023 02/20/2023 Coronary atherosclerosis 02/20/2023 023 Depression 02/20/2023 02/20/2023 Hypertension 02/20/2023 02/20/2023 Malignant neoplasm of lower lobe of right lung 0 02/20/2023 Cancer Staging:Clinical: cT1, cN0, cM0 - Signed by Jeremiah Villegas MD on 04/03/2023 Type 2 diabetes mellitus with complication 07/1302/20/2023 Gastroesophageal reflux disease 10/29/2016 02/20/2023 Chronic obstructive pulmonary disease 01/16/2016 02/20/2023 Bilateral carotid artery stenosis 05/30/2015 02/20/2023 Immunizations Immunization Administration Dates Next Due INFLUENZA VACCINE, ADJUVANTE D, QUADR. (FLUAD QUADRIVALENT; 65Y+) (AIIV4) 04/27/2023(Deferred: Patient Refused) Family History Medical History Relation Name Comments None Known Father Status: d Cancer - Lung Maternal Aunt Cancer - Lung Maternal Uncle None Known Mother Status: d Relation Name Status Comments Father Maternal Aunt Maternal Uncle Mother Social History Tobacco Use Types Packs/Day Years Used Date Smoking Tobacco: Former Cigarettes Q uit: 02/22/2023 Smokeless Tobacco: Never Tobacco Cessation:Counseling Given: No Alcohol Use Standard Drinks/Week Comments Not Currently 0 (1 standard drink = 0.6 oz pur e alcohol) AUDIT-C Answer Date Recorded Q1: How often do you have a drink containing alc ohol? Patient declined 04/25/2023 Q2: How many drinks containi ng alcohol do you have on a typical day when you are drinking? Patient declined 04/25/2023 Q3: How often do you have si x or more drinks on one occasion? Patient declined 04/25/2023 Overall Financial Resource Strain (CARDIA) Answe r Date Recorded How hard is it for you to pa y for the very basics like food, housing, medical care, and heating? Not hard at all 03/21/2023 [facility] [place] [facility] Occupat ional [facility] - Occupational Stress Questionnaire Answer Date Recorded Do you feel stress - tense, restless, nervous, or anxious, or unable to sleep at night because your mind is troubled all the time - these days? Not at all 03/21/2023 Hunger Vital Sign Answer Date Recorded Within the past 12 months, y ou worried that your food would run out before you got the money to buy more. Never true 03/21/20 23 Within the past 12 months, t he food you bought just didn't last and you didn't have money to get more. Never true 03/21/2023 PRAPARE - Transportation Answer Date Re corded In the past 12 months, has l ack of transportation kept you from medical appointments or from getting medications? No 12/2022 In the past 12 months, has l ack of transportation kept you from meetings, work, or from getting things needed for daily living? No 03/21/2023 Housing Stability Vital Sign Answer Stephon e Recorded In the last 12 months, was t here a time when you were not able to pay the mortgage or rent on time? No 03/21/2023 In the last 12 months, how many places have you lived? 1 03/21/2023 In the last 12 months, was t here a time when you did not have a steady place to sleep or slept in a snf (including now)? No 03/21/2023 Comments Unknown Sex and Gender Information Value Date Recorded Sex Assigned at Not on file Legal Sex Female 5:32 PM TRAVELING FREIGHT AGENT Gender Identity Not on file Sexual Orientation Not on file Last Filed Vital Signs Vital Sign Reading Time Taken Comments Blood Pressure 143/67 05/05/2023 9:25 AM TRAVELING FREIGHT AGENT Pulse 72 05/05/2023 2:08 PM TRAVELING FREIGHT AGENT Temperature 36.8 C (98.3 F) 05/05/2023 8:01 AM TRAVELING FREIGHT AGENT Respiratory Rate 18 05/05/2023 2:08 PM TRAVELING FREIGHT AGENT Oxygen Saturation 93% 05/05/2023 2:08 PM TRAVELING FREIGHT AGENT Inhaled Oxygen Concentration 30% 04/24/2023 3 :27 PM TRAVELING FREIGHT AGENT Weight 61.5 kg (135 lb 8 oz) 05/03/2023 5:05 AM TRAVELING FREIGHT AGENT Height 160 cm (5' 3) 04/24/2023 8:50 PM TRAVELING FREIGHT AGENT Body Mass Index 24 04/24/2023 8:50 PM TRAVELING FREIGHT AGENT Plan of Treatment Health Maintenance Due Date Last Done Comments BONE DENSITY TESTING 1955 COLOGUARD (AGES 45-75) - COLON CA SCREENING 1955 COLON MONITORING 1955 COLONOSCOPY - COLON CA SCREENING 1955 CT COLONOGRAPHY - COLON CA SCREENING 1955 Colorectal Cancer Screening 1955 FIT - COLON CA SCREENING 1955 FLEX SIG - COLON CA SCREENING 1955 MAMMOGRAM 1955 HEPATITIS C SCREENING 01/28/1973 DTAP/TDAP/TD VACCINES (1 - Tdap) 1974 PNEUMOCOCCAL VACCINE 50+ (1 of 2 - PCV) 1974 ZOSTER VACCINE (1 of 2) 2005 Respiratory Syncytial Virus (RSV) Vaccine Pt: or over 60 yrs (1 - Risk 60-74 years 1-dose series) 2015 DIABETES RETINOPATHY SCREENING 02/20/2023 DIABETES-FOOT EXAM WITH MONOFILAMENT 02/20/2023 DIABETES-HGB A1C 07/25/2023 04/24/2023, 11/2022, 12/06/2021 COVID-19 VACCINE ( season) 2024 10/18/2021, 03/28/2021, 03/01/2021 DIABETES-SERUM CREATININE 05/05/20242022, 05/04/2023, 05/03/2023, Additional history exists DEPRESSION SCREENING 06/15/2024 DIABETES - URINE PROTEIN SCREENING 06/15/2024 MEDICARE AWV CALENDAR YEAR 2024 INFLUENZA VACCINE (Season Ended) 2025 03/28/2021, 03/13/2021, 04/09/2016, Additional history exists HEPATITIS B VACCINE Aged Out No longe r eligible based on patient's age to complete this topic HIB VACCINE Aged Out No longer eligi ble based on patient's age to complete this topic HPV VACCINE Aged Out No longer eligi ble based on patient's age to complete this topic MENINGOCOCCAL (Group B) VACCINE SHARED DECISION-MAKING Aged Out No longer eligible based on patient's age to complete this topic MENINGOCOCCAL GROUPS A/C/Y/W VACCINE Aged Out No longer eligible based on patient's age to complete this topic Procedures Procedure Name Priority Date/Time Associated Diagnosis Comments RENAL FUNCTION PANEL Routine 05/05/2023 3:45 AM TRAVELING FREIGHT AGENT HEMOGLOBIN A1C Routine 04/24/2023 9:01 PM TRAVELING FREIGHT AGENT from Last 3 Months or Most Recently Relevant to Health Maintenance Results * (ABNORMAL) RENAL FUNCTION PANEL (05/05/2023 3:45 AM TRAVELING FREIGHT AGENT) [facility] Glucose 85 70 - 105 mg/dL 05/05/2023 6:21 AM [facility] Sodium 144 136 - 145 mmol/L 05/05/2023 6:21 AM [facility] Potassium 4.0 3.5 - 5.1 mmol/L 05/05/2023 6:21 AM [facility] Chloride 109(H) 98 - 107 mmol/L 05/05/2023 6:21 AM [facility] CO2 27 22 - 29 mmol/L 05/05/2023 6:21 AM [facility] Calcium 8.5 8.4 - 10.4 mg/dL 05/05/2023 6:21 AM [facility] Anion Gap 8 6 - 16 mmol/L 05/05/2023 6:21 AM [facility] BUN 21 7 - 26 mg/dL 05/05/2023 6:21 AM [facility] Creatinine 0.67 0.57 - 1.11 mg/dL 05/05/2023 6:21 AM [facility] Albumin 2.5(L) 3.4 - 5.0 gm/dL 05/05/2023 6:21 AM [facility] Phosphorus 4.0 2.3 - 4.7 mg/dL 05/05/2023 6:21 AM [facility] eGFR by CKD-EPI >90 >=90 mL/min/1.7 3 m2 05/05/2023 6:21 AM [facility] Blood BLOOD SPECIMEN / Unknown Lab Venipuncture / Unknown 05/05/2023 3:45 AM TRAVELING FREIGHT AGENT 05/05/2023 5:50 AM TRAVELING FREIGHT AGENT us Sylvia Mcarthur MD LAB - CHEMISTRY ORDERABLES Final Result Performing Organization Address [facility]/ZIP Co de Phone Number [facility] [address] [place], [place] [id number] * (ABNORMAL) HEMOGLOBIN A1C (04/24/2023 9:01 PM TRAVELING FREIGHT AGENT) Hemoglobin A1c 8.5(H) <5.7 % 04/24/2023 9:39 PM TRAVELING FREIGHT AGENT [facility] Estimated Average Glucose 197 mg/dL 04/24/2023 9:39 PM [facility] Blood BLOOD SPECIMEN / Unknown Venipuncture / Unknown 04/24/2023 9:01 PM TRAVELING FREIGHT AGENT 04/24/2023 9:11 PM TRAVELING FREIGHT AGENT Narrative [facility] - 04/24/2023 9:39 PM TRAVELING FREIGHT AGENT HbA1c Interpretation: Normal: < 5.7% Pre-diabetes: 5.7-6.4% Diabetes: Equal to or greater than 6.5% Test results diagnostic of diabetes should be repeated for confirmation. Treatment target values recommended by ADA and other clinical organizations should be used to evaluate metabolic control in patients. This test should not replace glucose testing for patients with Type 1 diabetes, pediatric patients, or women. Falsely low HbA1c results may be observed in patients with clinical conditions that shorten erythrocyte life span or decrease mean erythrocyte age such as the presence of unstable hemoglobin variants, elevated hemoglobin F level or other causes of hemolytic anemia. HbA1c may not accurately reflect glycemic control when clinical conditions that affect erythrocyte survival are present. Severe Iron deficiency anemia may yield falsely high results. Hemoglobin A1c assay should not be used to diagnose or monitor diabetes in patients with malignancy, recent blood transfusion, chronic kidney or liver disease. This method may yield falsely low results when hemoglobin (HbF) exceeds 5% in the specimen. The Salomon Alinity assay for the measurement of HbA1c is a National Glycohemoglobin Standardization Program (NGSP) certified method. us Mario Kearns MD LAB - CHEMISTRY ORDERAB LES Final Result Performing Organization Address [facility]/ZIP Co de Phone Number [facility] [address] [place] [address] [phone] from Last 3 Months or Most Recently Relevant to Health Maintenance Insurance MEDICARE [facility] [place]NA[place]IC[place] ADV Member Subscriber Plan / Payer (Ef fective 2024-Present) Name:Marueen Calzada Member ID:Not on file Relation to Subscriber:Self Name:Maureen Calzada Payer ID:[id number] (NAIC) Type:Medicare-Managed Care Address: [address] MEDICARE ADV Advance Directives * Full Code (Latest Code Status on File) Date Activated Date Inactivated Comments 04/24/2023 8:43 PM 05/05/2023 3:49 PM * Full Code Date Activated Date Inactivated Comments 03/19/2023 10:43 AM 03/25/2023 6:12 PM Care Teams Loom Repairer Relationship Specialty Start Date End Date Carter Jackson MD [address] [place] [phone] PCP - General Family Medicine 02/20/23
--- OUTSIDE RECORDS SUMMARY | 2024-11-24 12:36 | XMS_ITS | Encounter Summary ---
Author Organization [facility] Address [address] [place] [address] Phone Care Team Providers Care Community Pharmacist Name Role Phone Arie Mclaughlin MD Unavailable [phone] Carter Jackson MD Primary Care Provider [phone] Encounter Details Date Type Department Care Team (Late st Contact Info) Description 10/19/2023 Nursing Facility [facility] [address] [place] [phone] Drake Subramanian, PAC [address] [place], [place] [id number] Social History Tobacco Use Types Packs/Day Years [...] Progress Notes * Drake Subramanian, NAHED - 10/19/2023 12:48 PM CDT [facility] PROGRESS NOTE Maureen Calzada is a 68 y.o. female [facility] for rehabilitation. 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 Subjective: Interval History: I am seeing patient today for a skilled visit. Lying comfortably in bed. Says she had a fall yesterday and went to the emergency room. Medical records shows that she did go to [facility] yesterday, had extensive imaging done showingnothing acute. She denies any pain from this fall this time. No acute concerns. No change in her distal bilateral lower extremity pain/neuropathy. Nursing staff with no concerns about patient. [...] None Assessment/Plan: Generalized weakness and deconditioning Receiving fpc care and physical therapy rehabilitation Peripheral vascular [...] increase her gabapentin. She has scheduled methocarbamol. P.r.n.[place]. The Cymbalta will help with the neuropathy as well Insulin-dependent diabetes mellitus Was on metformin previously Continue basal and bolus insulin therapy Monitor Accu-Cheks 10/19/2023 blood sugars fluctuating Hypertension Continue losartan and metoprolol Monitor blood pressures 10/19/2023 well controlled Other chronic medical conditions include History of lung cancer status post VATS with right lower lobe lobectomy, COPD, asthma, GERD, depression, anxiety, hyperlipidemia, vitamin-D deficiency Stable Continue home regimen VTE Prophylaxis: Patient Low Risk I discussed advanced care planning with this patient. This note was dictated using M*Modal fluency dictation system and there may be errors in milk pasteurizer. Despite proof reading the note, there may be mistakes and I apologize for those. By: Drake Subramanian, PAC, 10/19/2023 12:48 PM CDT documented in this encounter Plan of Treatment Not on file documented as of this encounter Visit Diagnoses Not on filedocumented in this encounter Care Teams Community Pharmacist Relationship Specialty Start Date End Date Carter Jackson MD [address] [address] PCP - General Family Medicine 11/03/17 Arie Mclaughlin MD Consulting Physician Neurology 05/23/15 05/01/24 documented as of this encounter
--- OUTSIDE RECORDS SUMMARY | 2024-11-24 12:36 | XMS_ITS | Data Portability ---
Author Organization [facility] Address [address] [facility] [place] [address] Care Team Providers Care Genetics Teacher Name Role Phone JEREMIAH LOYA Primary Care Provider [phone] Assessment Encounter Date Assessment Date Assessment LastModified by Organization Details LastModified Time 04/19/2019 04/19/2019 Prior PCP in [place] [email or web address] Not available 04/19/2019 18:58:51 Plan of Treatment Reminders Order Date Submit Date Provider Last Modified By Organization Details Last Modified Time Details Appointments None recorde d. Lab None recorde d. Referral endocri nology referra l - Please call patient to william barron appt. Thank you 2018 019 [email or web address] [facility], [address] [place] [address], [address], 0 17:27:51 Procedures None recorde d. Surgeries None recorde d. Imaging mammogr am, screeni ng 2014 015 [facility] ([facility]), [address] [place], [address], 5 09:37:28 Medication Orders Evening Primros e 500 mg capsule 2014 015 [email or web address] Not available 9 11:20:21 vitamin E 268 mg (400 unit) capsule 2014 015 [email or web address] Not available 9 11:22:25 nystati n 100,000 unit/gr am topical cream 2014 015 [email or web address] Not available 9 11:21:32 Patient TargetsNo targets recorded. Patient Instructions Encounter Date Encounter Id Patient Instructions Last Modified By Organization Details Last Modified Time 05/08/2015 [id number] fibrocystic breast changes: care instructions [email or web address] Not available 05/08/2015 13:23:07 learning about breast cancer screening ava Not available 05/08/2015 13:17:39 04/19/2019 [id number] I have reviewed the provider's note and I agree with the documented assessment and plan. HLF [email or web address] Not available 04/26/2019 08:50:20 Reason for Referral Endocrinology Referral for T ype 2 diabetes mellitus Uncontrolled diabetes. Please call patient to schedule appt. Thank you Referring Physician: Jeremiah Loya, Tailor Helper, Encounter Date: 04/19/2019 Results Created Date Observation Date Name Description Value Unit Range Abnormal Flag Note LastModifiedBy Organization Detail LastModifiedTime 05/17/20 15 05/17/2015 mammo gram, scree ilene No observ ation record ed. [email or web address] Not Available 05/29 13:41:56 12/07/19 20 12/07/2019 MRI, brain , w/o contr ast No observ ation record ed. [email or web address] [facility] [address], [place], [address], 12/09/2019 15:30:48 12/07/[address], abdom en + pelvi s, w/o contr ast No observ ation record ed. [email or web address] [facility] [address], [place], [address], 12/09/2019 15:31:09 05/31/20 20 05/31/2020 myoca rdial perfu andrea study w/ eject ion fract ion (PROC ) No observ ation record ed. [email or web address] [facility] [address], [place], [address], 05/31/2020 15:20:17 06/01/20 20 05/31/2020 trans -thor acic echoc ardio gram (TTE) (PROC ) No observ ation record ed. [email or web address] [facility] [address] [facility], [place], [address], 06/04/2020 09:14:30 Result Notes None recorded. Problems Name Problem SNOMED Code Status Onset Date Resolution Date Notes Provider Name and Address Organization Details Recorded Time Gastroesop hageal reflux disease without esophagiti s 925059281 Active 2018 BRUNO RODRIGEZ Attn: Yanniruy garcia,[address] [place], [address], [facility] 9 09:02:21 Chronic obstructiv e pulmonary disease 44875424 Active 2018 BRUNO RODRIGEZ Attn: Yanniruy garcia,[address] [place], [address], [facility] 9 09:02:35 Angina pectoris 568841586 Active 2018 BRUNO RODRIGEZ Attn: Jules radha,[address] [place], [address], [facility] 9 09:02:43 Sinus tachycardi a 67828922 Active 2018 BRUNO RODRIGEZ Attn: Jules radha,[address] [place], [address], [place] [facility] 9 09:02:49 Coronary arterioscl erosis 14625361 Active 2018 Stents placed in RCA, OM, and R iliac artery. Recent cardiac cath shows patent coronary stents amd R iliac stent. Cardiology stopped ASA, continue with plavix. BRUNO RODRIGEZ Attn: Jules radha,[address] [place], [address], [place] [facility] 9 09:06:59 Fibromyalg ia 029608501 Active 2018 BRUNO RODRIGEZ Attn: Jules radha,[address] [place], [address], [facility] 9 09:03:09 Dizziness 683271034 Active 2018 Cardiology decreased metoprolol dose from 50 mg BID to 25 mg BID. Starting telemetry. BRUNO RODRIGEZ Attn: Accountruy garcia,[address] [facility], [place], [address], [place] [facility] 9 09:07:35 Pain in lower limb 04049298 Active 2018 BRUNO RODRIGEZ Attn: Accountruy g,[address] [facility], [place], [address], [place] [facility] 9 09:03:29 Tobacco user 834956193 Active 2018 BRUNO RODRIGEZ Attn: Accountruy g,[address] [facility], [place], [address], [place] [facility] 9 09:03:37 Essential hypertensi on 89258261 Active 2018 BRUNO RODRIGEZ Attn: Accountruy g,[address] [facility], [place], [address], [place] [facility] 9 09:03:45 History of myocardial infarction 070612630 Active 2018 BRUNO RODRIGEZ Attn: Accountin g,[address] [facility], [place], [address], [place] [facility] 9 09:04:00 Peripheral vascular disease 992577337 Active 2018 R iliac stent in 2012 BRUNO RODRIGEZ Attn: Accountin g,[address] [facility], [place], [address], [place] [facility] 9 09:04:20 Type 2 diabetes mellitus 84147187 Active 2018 BRUNO RODRIGEZ Attn: Accountin g,[address] [facility], [place], [address], [place] [facility] 9 09:04:30 Pancreatit is 79243695 Active 2018June 2017 underwent sphinctero zoraida at [facility]. CT 12/07/2019 showed possible pancreatit is. BRUNO RODRIGEZ Attn: Accountin g,[address] [facility], [place], [address], [place] [facility] 0 15:21:12 Hyperlipid emia 71666481 Active 2018 BRUNO RODRIGEZ Attn: Jules garcia,[address] [facility], [place], [address], [facility] - [facility] 9 11:46:47 Candidiasi s of skin 63283420 Active [place], [place] - [place] 5 13:17:38 Fibrocysti c disease of breast 89468539 Active [place] 5 13:17:38 Problem Notes None recorded. Procedures Surgical History Date Name Laterality Status Provider Name and Address Organization Details Recorded Time 12/09/19 14 Most Recent Mammogram completed Maritza Tallye MA [facility] 05/08/2015 12:49:49 06/15/19 09 Other completed Maritza Talley MA [facility] 05/08/2015 13:00:13 06/15/18 98 Other completed Maritza Talley MA [facility] 05/08/2015 12:57:57 06/15/18 97 Hysterectomy completed Maritza Talley MA [facility] 05/08/2015 12:57:57 Dilation and Curettage completed Maritza Talley MA [facility] 05/08/2015 12:57:57 Imaging Results None recorded. Procedure Notes None recorded. Medical Equipment None Reported. Allergies Allergen ID Allergen Name Allergen Category Reaction Reaction Severity Criticality Documentation Date Start Date Code Code System Note Provider Name and Address Organization Details Recorded Time 99420 morphine medicatio n vomiting moderate Not available 05/08/2015 7052 RxNorm EMELYN Pittman [facility] 5 12:42:34 54090 simvastat in medicatio n other severe Not available 05/08/2015 36196 RxNorm Burni ng sensa tion EMELYN Pittman [facility] 5 12:42:34 94325 Lipitor medicatio n itching moderate Not available 05/08/2015 94944 5 RxNorm EMELYN Pittman [facility] 5 12:42:34 Medications Name Sig Start Date Stop Date Status Note LastModified by Organization Details LastModified Time cyclobenzap rine 10 mg tablet active Not Available Not Available Not Available atorvastati n 40 mg tablet active Not Available Not Available Not Available metformin 500 mg tablet 04/19 completed Not Available Not Available Not Available venlafaxine ER 75 mg capsule,ext ended release 24 hr 04/19 completed Not Available Not Available Not Available nicotine 14 mg/24 hr daily transdermal patch active Not Available Not Available Not Available ammonium lactate 12 % lotion 04/19 completed Not Available Not Available Not Available trazodone 50 mg tablet 04/19 completed Not Available Not Available Not Available alprazolam 1 mg tablet active Not Available Not Available Not Available hydrocodone 5 mg-acetamin ophen 325 mg tablet 04/19 completed Not Available Not Available Not Available glipizide ER 10 mg tablet, extended release 24 hr 04/19 completed Not Available Not Available Not Available sucralfate 1 gram tablet active Not Available Not Available Not Available alendronate 70 mg tablet active Not Available Not Available Not Available gabapentin 400 mg capsule 04/19 completed Not Available Not Available Not Available Lantus U-100 Insulin 100 unit/mL subcutaneou s solution active Not Available Not Available N ot Available meclizine 12.5 mg tablet 04/19 completed Not Available Not Available Not Available clopidogrel 75 mg tablet active Not Available Not Available Not Available tramadol 50 mg tablet 04/19 completed Not Available Not Available Not Available pantoprazol e 20 mg tablet,lalo yed release 04/19 completed Not Available Not Available Not Available trazodone 100 mg tablet active Not Available Not Available Not Available dicyclomine 20 mg tablet active Not Available Not Available Not Available Humalog U-100 Insulin 100 unit/mL subcutaneou s solution active Not Available Not Available N ot Available meclizine 25 mg tablet active Not Available Not Available Not Available amlodipine 10 mg tablet 04/19 completed Not Available Not Available Not Available pantoprazol e 40 mg tablet,lalo yed release active Not Available Not Available Not Available nystatin 100,000 unit/gram topical cream APPLY TO THE AFFECTED AREA(S) BY TOPICAL ROUTE 2 TIMES PER DAY 04/19 completed Not Available Not Available Not Available lansoprazol e 30 mg capsule,del ayed release 04/19 completed Not Available Not Available Not Available metoprolol tartrate 50 mg tablet 04/19 completed Not Available Not Available Not Available indomethaci n 50 mg capsule 04/19 completed Not Available Not Available Not Available gabapentin 300 mg capsule active Not Available Not Available Not Available omeprazole 20 mg capsule,del ayed release 04/19 completed Not Available Not Available Not Available methylpredn isolone 4 mg tablets in a dose pack 04/19 completed Not Available Not Available Not Available vitamin E 268 mg (400 unit) capsule Take 1 capsule twice a day by oral route. 04/19 completed Not Available Not Available Not Available glipizide 5 mg tablet active Not Available Not Available No t Available amoxicillin 875 mg-potassiu m clavulanate 125 mg tablet 04/19 completed Not Available Not Available Not Available Ventolin HFA 90 mcg/actuati on aerosol inhaler active Not Available Not Available Not Available Evening Dierks 500 mg capsule Take 1 capsule every day by oral route at bedtime. 04/19 completed Not Available Not Available Not Available cyclobenzap rine 5 mg tablet 04/19 completed Not Available Not Available Not Available metoprolol tartrate 25 mg tablet active Not Available Not Available No t Available duloxetine 60 mg capsule,del ayed release active Not Available Not Available Not Available fenofibrate 160 mg tablet active Not Available Not Available Not Available Symbicort 80 mcg-4.5 mcg/actuati on HFA aerosol inhaler active Not Available Not Available Not Available ferrous sulfate 324 mg (65 mg iron) tablet,lalo yed release active Not Available Not Available Not Available Zenpep 40,000 unit-126,00 0 unit-168,00 0 unit capsule,del ayed release active Not Available Not Available Not Available Vitals Date Recorded Body height Body mass index (BMI) Body weight Heart rate Body temperature Oxygen saturation Oxygen saturation in Arterial blood by Pulse oximetry Systolic blood pressure Diastolic blood pressure Provider Name and Address Organization Details Last Updated DateTime 9 160.02 cm 24.8 kg/m2 30207.9 3 g 76 /min 97.4 [degF] 97 % 97 % 110 mm[Hg] 68 mm[Hg] Nisha Kilgore MA [place] - [facility] 9 11:35:35 Date Recorded Body height Body mass index (BMI) Body weight Systolic blood pressure Diastolic blood pressure Provider Name and Address Organization Details Last Updated DateTime 05/08/2015 160.02 cm 26.7 kg/m2 53034.44 787 g 136 mm[Hg] 84 mm[Hg] Maritza Talley MA [place] - [facility] 5 12:59:14 Social History Question Answer Notes LastModified by Organizat ion Details LastModified Time Tobacco Smoking Status Current Some Day Smoker Not Available [employer] 04/17/2020 03:39:32 Do You Have An Advance Directive? No [id number] Information not available 04/17/2020 Is Blood Transfusion Acceptable In An Emergency? No [id number] Information not available 04/17/2020 What Is Your Level Of Caffeine Consumption? None [id number] Information not available 04/17/2020 How Much Tobacco Do You Chew? None [id number] Information not available 04/17/2020 What Type Of Diet Are You Following? CARDIAC [id number] Information not available 04/17/2020 Which Illicit Or Recreational Drugs Have You Used? None [id number] Information not available 04/17/2020 Education 12 Information no t available 05/08/2015 Live Alone Or With Others? Alone Information not available 05/08/2015 What Was The Date Of Your Most Recent Tobacco Screening? 04/19/2019 [id number] Information not available 04/17/2020 How Many Children Do You Have? 0 [id number] Information not available 04/17/2020 Performs Monthly Self-breast Exam? No Information no t available 05/08/2015 What Is Your Relationship Status? [id number] Information not available 04/17/2020 Seat Belts Used Routinely Yes Information not available 05/08/2015 Are You Sexually Active? No [id number] Information not available 04/17/2020 At What Age Did You Start Smoking Tobacco? 16 [id number] Information not available 04/17/2020 How Much Tobacco Do You Smoke? 1 PPW [id number] Information not available 04/17/2020 General Stress Level Low Information not available 05/08/2015 Do You Use Sunscreen Routinely? No [id number] Information not available 04/17/2020 On What Date Was Tobacco Cessation Counseling Provided? 04/19/2019 [id number] Information not available 04/17/2020 How Many Years Have You Smoked Tobacco? 30 [id number] Information not available 04/17/2020 Sex: Unknown Functional Status Question Answer Note LastModified by Organization D etails LastModified Time What is your level of alcohol consumption? None [id number] Information not available 04/17/2020 Are you currently employed? No [id number] Information not available 04/17/2020 What is your occupation? Disabled [id number] Information not available 04/17/2020 What is your exercise level? Moderate [id number] Information not available 04/17/2020 Mental Status None recorded. Family History Relationship Description Onset Age of this Age Resolved Age Notes LastModified by Organization Details LastModified Time Sister Diabetes mellitus [email or web address] Not available 05/08 13:03:04 Sister Myocardial infarction [email or web address] Not available 04/16 13:03:04 Mother Heart disease [email or web address] Not available 05/08 13:03:04 Mother Hypercholest erolemia [email or web address] Not available 05/08 13:03:04 Mother Hypertensive disorder [email or web address] Not available 05/08 13:03:04 Mother Myocardial infarction [email or web address] Not available 04/16 13:03:04 Medical History Condition Response Other N High Blood Pressure N Breast Cancer N Thyroid Problems N Kidney or Bladder Problems N GI Problems N Depression N Blood Clots N Lung Disease N Acne N Breast Problem N Eating Disorder N Anemia N Anesthesia Complications N Headaches/Migraines N Anxiety Disorder N Diabetes N Ovarian Cancer N Muscle, Joint, or Bone Problems N Blood Transfusions N Seizures/Epilepsy N Polyps N Infertility N Acid Reflux (GERD) N Cancer N Abuse/Domestic Violence N Asthma N Endometriosis N High Cholesterol N Hepatitis N Liver Disease N Heart Disease N Pre-Eclampsia N Osteoporosis N Gynecological History Statement/Question Response Sexually Active? N On BCP's at Conception? N Menses Monthly N STIs/STDs Y HPV Vaccine N Sexual Problems? Y Age at Menarche 10 Current Control Method None Most Recent Mammogram 12/08/2013 Desired Control Method None Obstetrics History GPAL:G 2 P 0 0 2 0 Type Value Spontaneous 2 Total 2 Past Encounters Encounter ID Performer Location Encounter Start Date Encounter Closed Date Diagnosis/Indication Diagnosis SNOMED-CT Code Diagnosis ICD10 Code Diagnosis Note [id number] MD Vijay Julien ([employer]) [address] [place] [address] 05/08/2015 11:54:27 05/08/2015 13:42:58 Screening for malignant neoplasm of breast 086140954 Z12.39 Candidiasis of skin 4988 3006 B37.2 Fibrocysti c disease of breast 51930109 N60.19 [id number] BRUNO RODRIGEZ (Adult Med) [address] [place] [address] 04/19/2019 11:14:03 04/20/2019 09:44:04 Type 2 diabetes mellitus 20332800 E11.9 HgbA1c today is 9.9.Medica tion regimen supposed to be metformin 500 mg QID, glipizide BID, lantus 50 units BID, and humalog 20-30 units TID before meals.She admits that she stopped taking metformin totally b/c she thinks it is not helping, glipizide once daily, lantus 50 units BID and humalog 20-30 units sliding scale (will not take if fasting BS in low 100s in morning) Yesterday, fasting BS 119 in the morning and 200-400 after meals - discussed in depth the importance of re-startin g metformin, taking glipizide as prescribed , and taking insulin as prescribed . Advised her to continue to check BS daily, both fasting and after meals.- Sent endocrinol ogy referral for patient with help regarding medication s Pancreatitis 20664967 K8 5.90 Recently hospitaliz ed at [facility] on 04/03- 04/05 for pancreatit is and peptic ulcer.She follows with Dr. Mansfield for these issues and has a follow-up appointmen t tomorrow.A dmits to improvemen t in abdominal pain since hospitaliz ation, states mild pain occurs while eating and after eating food.Admit s to not taking pancrelipa se, advised patient to take this medication with food when she eats, it may help with abdominal pain during food intake - Continue to follow-up with Dr. Mansfield History of peptic ulcer 511158490 Z87.11 Recently hospitaliz ed at [facility] on 04/03- 04/05 for pancreatit is and peptic ulcer.She follows with Dr. Mansfield for these issues and has a follow-up appointmen t tomorrow.- Continue taking pantoprazo le daily Dizziness 091783117 R42 Saw Cardiology yesterday regarding this matterCard iology decreased metoprolol from 50 mg BID to 25 mg BIBCardiol ogy plans to start telemetry, advised patient to continue with this work-up Chronic ob structive pulmonary disease 89492274 J44.9 Hx of COPDUsing albuterol PRN and Symbicort dailyStill smoking, smokes 1 PPW Has an upcoming pulmonolog y appointmen t with Ava Knowles NP Panic attack 294218643 F 41.0 Admits to severe panic attacks x yearsTakes Alprazolam 1 mg tablet as needed for thisOld PCP used to write for Alprazolam , no psychiatry care establishe d - Advised patient that I do not write for benzo medication s in the PCP setting, I told her I would be happy to get her in touch with psychiatry for this but patient states she may just return to her prior PCP then because she absolutely needs this medication Health Concerns Section Related Observation LastModified by Organization Detai ls LastModified Time None Recorded Concern Status LastModified by Organization Details LastModified Time None Recorded Advance Directives Directive N: Payers Insurance Date Sequence Insurance Name Policy Number Policy Martinez Covered Member ID Martinez Member ID Guarantor Name 06/01/2019 3 [place] WHEN MEDICARE OR MEDICARE REPLACEMENT PRIMARY) Maureen Calzada [id number] Maureen Calzada 06/14/2019 1 [place] [facility] Maureen Calzada [id number] Maureen Calzada 06/09/2019 1 [place] Maureen Calzada [id number] Maureen Calzada 06/14/2019 3 [place] [employer] Maureen Calzada [id number] Maureen Calzada 07/18/2019 2 [facility] PRIOR TO 12/13/2020 (MEDICAID REPLACEMENT - HMO) Maureen Calzada [id number] Maureen Calzada Notes Date Note Type Note Provider Name and Address Organization Details Recorded Time 04/19/2019 text/html 64 year old johnie varner presents today to establish care. She used to see a PCP in [place] but I see one of her family members so she decided she wanted to switch. Recently hospitalized at [facility] on 04/03- 04/05 for pancreatitis and peptic ulcer. She follows with Dr. Mansfield for these issues and has a follow-up appointment tomorrow. Admits to improvement in abdominal pain since hospitalization, states mild pain occurs while eating and after eating food. Denies fever, chills, nausea, vomiting, headaches, chest pain, SOB, diarrhea, constipation, hematochezia, melena or dysuria. Has a cardiac history, including history of CAD s/p stents, PAD s/p stents, NC, and HTN. Follows with [facility] cardiology. She had an appointment with them yesterday, she was taken off of daily ASA due to peptic ulcer and metoprolol decreased because symptoms of dizziness. Cardiology plans to start telemetry due to dizziness. Denies chest pain, SOB, and palpitations. Hx of COPD, takes albuterol as needed and symbicort daily. Has an upcoming appointment with Ava Knowles for pulmonology care. History of type 2 diabetes uncontrolled. Was supposed to be taking metformin, glipizide, and insulin. She stopped taking metformin herself because felt like it was not working. She admits to only taking glipizide once daily instead of twice daily. She is supposed to be taking 50 units of lantus BID and 20-30 units of humalog TID before meals. She admits that if she wakes up in the morning with a good blood sugar, she will not take her morning humalog dose. Since hospitalization, fasting BS in the morning usually around 110-130, and BS after meals usually 200-400. States she tries to eat healthy but admits to cheating fried chicken once a month. Requesting refills on Alprazolam for her panic attacks. States she does not take them regularly but she absolutely needs them. She does not see psychiatry, instead PCP prescribes this for her. Shabana Dahl MD Attn: Accounting[address] [place], [address], [place] [facility] 04/26/2019 08:50:30 OBGyn Episode No OBEpisode recorded.
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
--- OUTSIDE RECORDS SUMMARY | 2024-11-24 12:36 | XMS_ITS | Encounter Summary ---
Author Organization [facility] Address [address] [place] [address] Phone Care Team Providers Care Waiter/Waitress Tavern Name Role Phone Arie Mclaughlin MD Unavailable [phone] Carter Jackson MD Primary Care Provider [phone] Encounter Details Date Type Department Care Team (Late st Contact Info) Description 10/30/2023 Nursing Facility [facility] [address] [place] [phone] Drake Subramanian, PAC [address] [place], [place] [id number] Social History Tobacco Use Types Packs/Day Years [...] Progress Notes * Drake Subramanian, NAHED - 10/30/2023 9:31 AM CDT LALY CALERO [facility] ASSISTED DISCHARGE SUMMARY Name: Maureen Calzada Age: 68 y.o. : 1955 Attending Physician: No att. providers found Admission Date/Time: 10/14/2023 Expected Discharge Date: 10/30/2023 Primary Care Physician: CARTER JACKSON MD Discharging Provider: NAHED Caballero INSTRUCTIONS FOR PHYSICIANS ON FOLLOW UP AFTER DISCHARGE: Follow-up with PCP in 1-2 weeks. She will need to follow-up with her vascular surgeon in 2-3 weeks. Gabapentin not helping for her pain so this is in the process of being tapered and she will be starting on Lyrica and a couple days. Discharge Instructions: Discharge Condition: not changed Disposition: Home Diet: Cardiac Diet and Diabetic Diet Activity: activity as tolerated Discharge Diagnoses: Generalized weakness and deconditioning,peripheral vascular disease in both lower extremities status post stenting and then subsequent iliofemoral bypass after she had developed a thrombus, insulin-dependent diabetes mellitus, hypertension, History of lung cancer status post VATS with right lower lobe lobectomy, COPD, asthma, GERD, depression, anxiety, hyperlipidemia, vitamin-D deficiency Admitting Diagnoses: Generalized weakness and deconditioning, peripheral vascular disease in both lower extremities status post stenting and then subsequent iliofemoral bypass after she had developeda thrombus, insulin- dependent diabetes mellitus, hypertension, History of lung cancer status post VA TS with right lower lobe lobectomy, COPD, asthma, GERD, depression, anxiety, hyperlipidemia, vitamin-D deficiency SKILLED CARE COURSE: Maureen Calzada was admitted to alf facility for acute care rehabilitation. 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 While at the rehabilitation facility, the patient received nursing care. He did not receive skilled therapy because insurance did not approve it. Apparently she was too highly functioning for the therapy. She is independent with her ADLs and safe to be discharged back to home. Her main issue is her bilateral lower extremity pain which had been present for over a month prior to coming to the rehabilitation facility and has not gotten much better. She is taking Raymond for thepain. I started her on gabapentin and increased that dosing while she was here which she has had nobenefit from that, so the gabapentin is being tapered and discontinued currently and she will be started on Lyrica on 11/02/2023. I had ordered a ordered this for her and is here at the facility so she will be given this to go home with. She is currently lying comfortably in bed. Says that her legs still hurt but she has no other concerns. She will be going home where she lives by herself. Her niece will be picking her up shortly. She is comfortable with this plan. Exam Day of Discharge: Vital Signs: Recent vital signs were reviewed [...] and affect, Intact judgement and memory Lab / Imaging Review: Lab Results: 10/15/2023: CMP with glucose 298, sodium 135 otherwise unremarkable. CBC with hemoglobin 10.7, platelet count 522 otherwise unremarkable. Vitamin D level low at 20. Thyroid panel within normal limits. 10/21/2023: CMP unremarkable. CBC with hemoglobin 11.0 otherwise unremarkable. INR within normal limits. Thyroid panel within normal limits. Vitamin-D slightly low at 25. A1c of 6.0. Imaging: None DISCHARGE PLAN: She will be going home with home health later today. Understands to continue all current medications as directed and follow up with PCP in 1-2 weeks. Will need to follow-up with her vascular surgeon in 2-3 weeks. I explained all this with the patient several times over and she is agreeable with plan. I have spent time coordinating care for this alf facility discharge: Greater than 30 minutes spent in coordinating care This note was dictated using [employer] fluency dictation system and there may be errors in layout worker. Despite proof reading the note, there may be mistakes and I apologize for those. Signed: Drake Subramanian PAC, 10/30/2023, 9:32 AM CDT documented in this encounter Plan of Treatment Not on file documented as of this encounter Visit Diagnoses Not on filedocumented in this encounter Care Teams Waiter/Waitress Tavern Relationship Specialty Start Date End Date Carter Jackson MD [address] [address] PCP - General Family Medicine 11/03/17 Arie Mclaughlin MD Consulting Physician Neurology 05/23/15 05/01/24 documented as of this encounter
--- OUTSIDE RECORDS SUMMARY | 2024-11-24 12:36 | XMS_ITS | Continuity of Care Document ---
Author Organization [facility] Address [address] [facility] [address] [place] [address] Phone Care Team Providers Care Splunk Dashboard Developer Name Role Phone Blanquita Rucker MD Unavailable Unavailable Medications Medication Instructions Dosage Effective Dates (start - stop) Status Comments Trelegy Ellipta 200 mcg-62.5 mcg-25 mcg powder for inhalation inhale 1 puff by inhalation route every day at the same time each day 1.00 puff - Active Zenpep 40,000 unit-126,000 unit-168,000 unit capsule,delayed release Zenpep 40,000 unit-126,000 unit-168,000 unit capsule,delayed release - Active Ventolin HFA 90 mcg/actuation aerosol inhaler Ventolin HFA 90 mcg/actuation aerosol inhaler - Active trazodone 100 mg tablet trazodone 100 mg tablet - Active Carafate 1 gram tablet sucralfate 1 gram tablet - Active Protonix 40 mg tablet,delayed release pantoprazole 40 mg tablet,delayed release - Active Nicoderm CQ 14 mg/24 hr daily transdermal patch nicotine 14 mg/24 hr daily transdermal patch - Active metoprolol tartrate 25 mg tablet metoprolol tartrate 25 mg tablet - Active VertiCalm 25 mg tablet meclizine 25 mg tablet - Active Lantus U-100 Insulin 100 unit/mL subcutaneous solution Lantus U-100 Insulin 100 unit/mL subcutaneous solution - Active Humalog U-100 Insulin 100 unit/mL subcutaneous solution Humalog U-100 Insulin 100 unit/mL subcutaneous solution - Active glipizide 5 mg tablet glipizide 5 mg tablet - Active Neurontin 300 mg capsule gabapentin 300 mg capsule - Active ferrous sulfate 324 mg (65 mg iron) tablet,delayed release ferrous sulfate 324 mg (65 mg iron) tablet,delayed release - Active fenofibrate 160 mg tablet fenofibrate 160 mg tablet - Active Cymbalta 60 mg capsule,delayed release duloxetine 60 mg capsule,delayed release - Active dicyclomine 20 mg tablet dicyclomine 20 mg tablet - Active cyclobenzaprine 10 mg tablet cyclobenzaprine 10 mg tablet - Active Plavix 75 mg tablet clopidogrel 75 mg tablet - Active Lipitor 40 mg tablet atorvastatin 40 mg tablet - Active Xanax 1 mg tablet alprazolam 1 mg tablet - Active Fosamax 70 mg tablet alendronate 70 mg tablet - Active Procedures Procedure Date New (Level 4) OFFICE/OUTPATIENT VISIT Advance Directives Directive Yes / No Effective Date File Name Other Directive No N/A N/A WARNING:The information contained in this section is historical and is provided for information only and does not constitute a legal document or any assurance that the information is still accurate. Please verify the information with the lomax of the legal document before using it for clinical purposes. Encounters Encounter Description Practice Location Reason(s) For Visit Diagnoses Date Provider Providers Copied on Encounter New (Level 4) OFFICE/OUTPA TIENT VISIT [facility], [address] [place] [address], [id number], [place] tel:[phone] [address] [facility] [place] [facility] (chief complaint) Hypogammaglob ulinemiaSever e persistent asthmaOther allergic rhinitis [address] , [place], [address], [place]. tel:[phone] Referring Provider: Jame Paniagua, [address] [facility] [address], [place], [address]. tel:[phone] Family History Family Member Type Diagnosis Age At Onset Problem No family history of Asthma Problem No family history of Allergi c rhinitis Problem No family history of Immunod eficiency disorder Payers Payer name Insurance type Covered democrat ID Authoriza tijerel(s) Halie [id number] Social History Type Description Quantity Date Captured Comments Alcohol Use Details Unknown Caffeine Use Details Unknown Tobacco Use Status Moderate cigarette smoker (10-19 cigs/day) Smoking Status Heavy tobacco smoker Smoking Tobacco Use Details Cigarette: Years Used 50 Cigarette: 0.5 Packs per day, Pack Year: 25 Sex Female Vital Signs Date / Time: Height Weight BMI Pulse Rate Blood Pressure Temperature Respiratory Rate Body Surface Area Head Circumference Head Circ. Percentile Wt./Naveen. Percentile BMI percentile Pulse Ox Inhaled Ox 10:42 AM 64.50 in 54.885 kg (121.00 lbs) 20.4 5 kg/m eter (2) 66 /min 124/60 mm[Hg] 97.80 F 1.58 meter(2) 94 % Chief Complaint And Reason For Visit From encounter dated '11/27/2022 10:40'. immunodeficiency (chief complaint). Description: She is under evaluation for lung nodules. As part of the workup, she had immunoglobulins drawn, showing a decreased IgG as below. She is referred for immune evaluation.Conjunctivitis: 0OM: 0Sinusitis: 1-2/yearlyPneumonia: 1 (atypical PNA ?CXR - in the 1980s/90s)SSTI: 0Hospitalizations: COVID-19 (she reports this admission was due to hyperglycemia as a result of the infection)Other Infections: 0She does not feel she gets sick very often. AsthmaThepatient has asthma on Trelegy 200/62.5/25 ?cg 1 puff daily (started 1 year ago) and albuterol PRN (used twice per month). They were diagnosed with asthma at age 66. The patient has never been hospitalized for asthma. Currently, they have no exertional limitations 2/2 asthma symptoms (but she is limited by other issues). They report 3 nocturnal awakenings per week with cough. No ED/PCP/UCvisits and no oral steroid bursts because of asthma in the last year.She follows w/ Pulmonology, Dr. Paniagua. She will have a navigational bronchoscopy with Dr. Young 12/02/22. RhinitisThe patient has ahistory of perennial rhinitis without seasonal worsening. The symptoms include rhinorrhea (ant), congestion, and sneezing + cough w/o ocular pruritus and tearing. Currently, the patient is on Flonase2 SEN PRN, which she rarely uses. She is comfortable simply blowing her nose instead of using medications. She is on metoprolol BIDPMH: DM, pancreatitis, SUSAN, HTN, CADPSH: hysterectomy, cholecystectomy, Medication Allergies: Morphine, Simvastatin [tolerates atorvastatin], DarvonNo FH of asthma, rhinitis, immune deficiencySHTobacco: Current Smoker (0.5 ppd x 50 years)Environmental HistoryLives in an apartment w/ central air/forced heat, she suspects mold/water damageFlooring in Bedroom: hard flooringPets: dogDataI reviewed outside records available in the EMR10/09/22A1AT Phenotype PI*MMEnvironmental Immunocaps: +dog, grass, trees, ragweed / other weeds, mold [all very low] w/ total IgE 263LsC899 (L)*IgG1 260*IgG2 104 (L)*IgG3 51*IgG4 51ANCA - qbhervYpsl-NG-J & Anti-SS-B wnlAnti-Jo1, Anti-Scl-70, Anti- Centromere B wnlRF wnlCoccidioides IgG/IgM wnlPFT 10/2021Moderate obstruction w/ good bronchodilator response Reason For Referral Reason For Referral No Information Plan Of Treatment Date Type Action Status Goal Tobacco cessation counseling completed Future Order: Lab Order AH50 (Al ternative Complement Pathway Functional, Serum) ([id number]), Ordered on: Ordered Future Order: Lab Order Compleme nt Total (CH50) ([id number]), Ordered on: Ordered Future Order: Lab Order Immunogl obulins Panel (IgA, IgE, IgG, IgM) ([id number]), Ordered on: Ordered Future Order: Lab Order Diptheri a/Tetnus Tracy, IgG ([id number]), Ordered on: Ordered Future Order: Lab Order S. Pneum onia-23 Serotypes ([id number]), Ordered on: Ordered Future Order: Lab Order CBC With Diff ([id number]), Ordered on: Ordered Future Order: Lab Order T, B, NK , Cell Profile (Subset Panel 1) ([id number]), Ordered on: Ordered History Of Present Illness Encounter Date Complaint History Of Prese nt Illness immunodeficiency She is under ev aluation for lung nodules. As part of the workup, she had immunoglobulins drawn, showing a decreased IgG as below. She is referred for immune evaluation.Conjunctivitis: 0OM: 0Sinusitis: 1-2/yearlyPneumonia: 1 (atypical PNA ?CXR - in the /90s)SSTI: 0Hospitalizations: COVID-19 (she reports this admission was due to hyperglycemia as a result of the infection)Other Infections: 0She does not feel she gets sick very often. AsthmaThe patient has asthma on Trelegy 200/62.5/25 ?cg 1 puff daily (started 1 year ago) and albuterol PRN (used twice per month). They were diagnosed with asthma at age 66. The patient has never been hospitalized for asthma. Currently, they have no exertional limitations 2/2 asthma symptoms (but she is limited by other issues). They report 3 nocturnal awakenings per week with cough. No ED/PCP/UC visits and no oral steroid bursts because of asthma in the last year.She follows w/ Pulmonology, Dr. Paniagua. She will have a navigational bronchoscopy with Dr. Young 12/02/22. RhinitisThe patient has a history of perennial rhinitis without seasonal worsening. The symptoms include rhinorrhea (ant), congestion, and sneezing + cough w/o ocular pruritus and tearing. Currently, the patient is on Flonase 2 SEN PRN, which she rarely uses. She is comfortable simply blowing her nose instead of using medications. She is on metoprolol BIDPMH: DM, pancreatitis, SUSAN, HTN, CADPSH: hysterectomy, cholecystectomy, Medication Allergies: Morphine, Simvastatin [tolerates atorvastatin], DarvonNo FH of asthma, rhinitis, immune deficiencySHTobacco: Current Smoker (0.5 ppd x 50 years)Environmental HistoryLives in an apartment w/ central air/forced heat, she suspects mold/water damageFlooring in Bedroom: hard flooringPets: dogDataI reviewed outside records available in the EMR10/09/22A1AT Phenotype PI*MMEnvironmental Immunocaps: +dog, grass, trees, ragweed / other weeds, mold [all very low] w/ total IgE 592IgG 489 (L)*IgG1 260*IgG2 104 (L)*IgG3 51*IgG4 51ANCA - hljhxtRiqd-BE-R & Anti-SS-B wnlAnti-Jo1, Anti-Scl-70, Anti-Centromere B wnlRF wnlCoccidioides IgG/IgM wnlPFT 10/2021Moderate obstruction w/ good bronchodilator response Functional Status Date Functional Assessmen t No Information Instructions Date Instruction Additional Infor mation Labs must be drawn b efore 2 pm between Thursday and Related to Hypogammaglobulinemia Assessments Type Assessment Date assessment Hypogammaglobulinemia 3 assessment Severe persistent asthma 2022 assessment Other allergic rhinitis 023 Patient Care Teams Name Effective Dates (start - stop) Status Members No Information
--- OUTSIDE RECORDS SUMMARY | 2024-11-24 12:37 | XMS_ITS ---
Author Organization [facility] Health Address [address] [place] [address] Care Team Providers [facility] Name Role Phone Carter Jackson MD Primary Care Provider Active Problems Problem Noted Date Diagnosed Date [...] 02/20/2023 Bilateral carotid artery stenosis 05/30/2015 02/20/2023 Current Treatment and Therapy Plans No current plan information found. Past Treatment and Therapy Plans No past plan information found. Lifetime Dose Tracking * Chemical Lifetime Dose Automatic Entry Manual Entr y Dose Length Product 466.8 mGy-cm 466.8 mGy-cm 0 mGy-cm
--- OUTSIDE RECORDS SUMMARY | 2024-11-24 12:37 | XMS_ITS | Data Portability ---
Author Organization [place] [facility] [employer] [facility], Main Office Address [address] [place] [address] Care Team Providers Care Picking Crew Supervisor Name Role Phone MAXIM WYMAN Primary Care Provider MAXIM WYMAN Referring Provider [phone] Assessment Encounter Date Assessment Date Assessment LastModified by Organization Details LastModified Time 07/08/2023 07/08/2023 This note is dictated and transcribed by [employer]. [employer] variances may occur. Despite proofreading, typographical errors may occur. Not available 07/08/2023 15:44:04 07/22/2023 07/22/2023 This note is dictated and transcribed by [employer]. [employer] variances may occur. Despite proofreading, typographical errors may occur. Not available 07/22/2023 15:17:10 08/19/2023 08/19/2023 This note is dictated and transcribed by [employer]. [employer] variances may occur. Despite proofreading, typographical errors may occur. Not available 09/02/2023 10:35:47 08/09/2024 08/09/2024 This note is dictated and transcribed by [employer]. [employer] variances may occur. Despite proofreading, typographical errors may occur. Occasional wrong-word or '[id number]-b-eugy' substitutions may have occurred due to the inherent limitations of voice recording. Read the chart carefully and recognize, using context, where substitutions have occurred. Not available 08/09/2024 13:08:52 11/08/2024 11/08/2024 This note is dictated and transcribed by [employer]. [employer] variances may occur. Despite proofreading, typographical errors may occur. Occasional wrong-word or 'qtvkm-m-[id number]' substitutions may have occurred due to the inherent limitations of voice recording. Read the chart carefully and recognize, using context, where substitutions have occurred. [email or web address] Not available 11/08/2024 11:51:19 Plan of Treatment Reminders Order Date Submit Date Provider Last Modified By Organization Details Last Modified Time Details Appointments Establish ed Patient 15 2024 10:45A M Navin Ramos DPM Not available Not available Not available Lab None recorded. Referral pain managemen t referral - PLEASE CALL PT TO SCHEDULE AN APPT..... THANK YOU! 2024 025 ALBERT Perez MD, [address] [facility] , [address] [address], [place], [address], 11/08/2024 12:50:34 Procedures None recorded. Surgeries None recorded. Imaging None recorded. Medication Orders None recorded. Patient TargetsNo targets recorded. Patient InstructionsNo instructions recorded. Reason for Referral Pain Management Referral for Neuropathy due to type 2 diabetes mellitus PLEASE CALL PT TO SCHEDULE AN APPT.....THANK YOU! Referring Physician: Navin Ramos, Podiatric Surgery, Encounter Date: 11/08/2024 Results Created Date Observation Date Name Description Value Unit Range Abnormal Flag Note LastModifiedBy Organization Detail LastModifiedTime 07/09/19 24 07/09/2023 imagi ng/di agnos tic resul t No observ ation record ed. [email or web address] [facility] [address], [place], [address], 07/14/2023 14:23:58 07/09/19 24 07/09/2023 imagi ng/di agnos tic resul t No observ ation record ed. [email or web address] [facility] [address], [place], [address], 07/14/2023 14:00:40 07/22/19 24 07/09/2023 arter ial study , pablo coombs, multi ple level No observ ation record ed. [email or web address] [facility] [address], [place], [address], 09/01/2023 11:17:26 08/11/19 24 08/11/2023 vascu anahi holdeni donna n (PROC ) No observ ation record ed. [email or web address] [facility] [address], [place], [address], 08/11/2023 14:09:59 11/16/19 24 11/16/2023 RF, talita nce No observ ation record ed. [email or web address] [facility] [address] [place], [address], 11/18/2023 08:53:37 Result Notes None recorded. Problems Name Problem SNOMED Code Status Onset Date Resolution Date Notes Provider Name and Address Organization Details Recorded Time Metatarsa lgia 46730117 Active 2021 Not Available [employer] 3 02:51:53 Asthma-ch ronic obstructi ve pulmonary disease overlap syndrome 45103610884 333641 Active 2021 Not Available [employer] 3 02:51:53 Chronic obstructi ve pulmonary disease 45258614 Completed 201912/28/2020 Jame Paniagua MD [address] [facility], [facility] [address], [place], [address] , [facility] [employer] 3 19:28:55 Localized , primary osteoarth ritis of the shoulder region 206765391 Active Not Available [facility] 3 02:51:53 Thyroid nodule 752342322 Active 2021 Not Available [facility] 3 02:51:53 Dyspnea 719164543 Completed 201612/28/2020 Not Available [facility] 3 02:51:54 Bursitis of bursa of ankle and/or foot 218671535 Active 2021 Not Available [facility] 3 02:51:54 Osteopeni a 228546927 Active Not Available [facility] 3 02:51:54 Neuropath y due to type 2 diabetes mellitus 55274952770 9106 Active 2020 Not Available [facility] 3 02:51:55 Adhesive capsuliti s of shoulder 647066084 Active Not Available [facility] 3 02:51:55 Immunoglo bulin deficienc y 344312972 Active 2021 Not Available [facility] 3 02:51:55 Coronary atheroscl erosis 724743736 Active Not Available [facility] 3 02:51:56 Carpal tunnel syndrome 38275890 Active Not Available [facility] 3 02:51:57 Essential hypertens ion 36772228 Active Not Available [facility] 3 02:51:57 Long-term current use of anticoagu lant 268398121 Active 2019 Not Available [facility] 3 02:51:57 Brachial neuritis 40664649 Active Not Available [facility] 3 02:51:58 Sleep apnea 28608583 Completed 201912/28/2020 Not Available [facility] 3 02:51:58 Pancreati tis 16288300 Active 2016 Not Available [facility] 3 02:51:58 Obstructi ve sleep apnea syndrome 61477737 Active 2020 Not Available [facility] 3 02:51:59 Ex-smoker 4680642 Completed 201912/28/2020 Not Available [facility] 3 02:51:59 Cardiomyo lamine 28445249 Active Not Available [facility] 3 02:51:59 Dystrophi a unguium 80900988 Active 2021 Not Available [facility] 3 02:51:59 Secondary pulmonary hypertens ion 98715087 Active 2022 Not Available [facility] 3 02:52:00 Smoker 19095947 Active 2022 Jame Paniagua MD [address] [facility], [address] [address], [place], [address] , [facility] 3 12:02:05 Multiple nodules of lung 981833736 Active 2022 Ava Knowles, [facility] [address], [place], [address] , [facility] [employer] [facility] 3 16:02:24 Peroneal tendiniti s 74648270 Active 2022 Navin Ramos DPM [address], [place], [address] , [facility] [employer] [facility] 3 17:21:12 Periphera l arterial occlusive disease 040171428 Active 2023 Navin Ramos DPM [address], [place], [address] , [facility] [employer] 4 15:40:59 Pain of toe of right foot 93066778863 9101 Active 2023 Navin Ramos DPM [address], [place], [address] , [employer] 4 15:41:24 Skin eschar 006433885 Active 2023 Navin Ramos DPM [address], [place], [address] , [facility] [employer] [facility] 4 15:44:06 Pain in toe 234415331 Active 2024 Navin Ramos DPM [address], [place], [address] , [facility] [employer] [facility] 5 13:09:07 Bunion 567499622 Active 2024 Navin Rmaos DPM [address], [place], [address] , [facility] [employer] 5 11:51:54 Hammer toe 422955637 Active 2024 Navin Ramos DPM [address], [place], [address] , [facility] [employer] 5 11:52:00 Notes:Lab data 04/27/23 mult iple environmental allergens, elevated IgE, low total IgG, low IgG2 Medical History: Dementia Anxiety/Depression Bilateral tinnitus Rhinitis with postnasal drip IgE 592 IU/mL Hypogammaglobulinemia (total, IgG2) COVID infection 03/2022 Left thyroid nodule Nicotine use Mod ACO RLL squamous cell ca Hypertension Mixed hyperlipidemia DM with neuropathy CAD AMPARO Hemorrhoids Urge urinary incontinence Vit D deficiency Osteopenia CTS Procedure History: Cholecystectomy 1986 VALENCIA-BSO 1994 Pancreatic stent placement & removal 2019 Bilateral cataract extraction with IOL 2020 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 Procedures Surgical History Date Name Laterality Status Provider Name and Address Organization Details Recorded Time 11/09/19 25 Nail Debridement completed Navin Ramos DPM [address], [place], [address], [facility] [employer] [facility] 11/08/2024 11:50:32 08/09/19 25 Nail Debridement completed Navin Ramos DPM [address], [place], [address], [facility] [employer] [facility] 08/09/2024 13:08:46 11/16/19 24 Hip surgery completed SHOSHANA Haines [facility] [employer] [facility] 11/25/2023 07:12:31 08/19/19 24 Wound Care-Podiatry completed Navin Ramos DPM [address], [place], [address], [facility] [employer] [facility] 09/02/2023 10:35:41 07/22/19 24 Wound Care-Podiatry completed Navin Ramos DPM [address], [place], [address], [facility] [employer] [facility] 07/22/2023 15:17:05 07/08/19 24 Wound Care-Podiatry completed Zeeshan Subramanian RN [facility] [employer] [facility] 07/08/2023 15:44:55 07/01/19 24 Wound Care-Podiatry completed Navin Ramos DPM [address], [place], [address], [facility] [employer] [facility] 07/01/2023 16:23:47 06/24/19 24 Wound Care-Podiatry completed Navin Ramos DPM [address], [place], [address], [facility] [employer] [facility] 07/01/2023 16:26:30 02/04/20 23 Nail Debridement completed Navin Ramos DPM [address], [place], [address], [facility] [employer] [facility] 02/11/2023 14:10:52 08/29/19 23 Nail Debridement completed Navin Ramos DPM [address], [place], [address], [facility] [employer] [facility] 08/28/2022 12:32:48 Cardiac Stent Placement completed Not Available [facility] 08/13/2022 02:44:04 Imaging Results None recorded. Procedure Notes None recorded. Medical Equipment None Reported. Allergies Allergen ID Allergen Name Allergen Category Reaction Reaction Severity Criticality Documentation Date Start Date Code Code System Note Provider Name and Address Organization Details Recorded Time 4876 simvastat in medicatio n Not available Not available Not available 08/13/2022 85632 RxNorm Not Available [facility] 3 03:04:09 4877 morphine medicatio n Not available Not available Not available 08/13/2022 7052 RxNorm Not Available [facility] 3 03:04:10 4878 propoxyph gael hydrochlo ride medicatio n Not available Not available Not available 08/13/2022 42025 RxNorm Not Available [facility] 3 03:04:10 4879 Lipitor medicatio n Not available Not available Not available 08/13/2022 56020 5 RxNorm Not Available [facility] 3 03:04:10 Medications Name Sig Start Date Stop Date Status Note LastModified by Organization Details LastModified Time cyclobenza bladimir 10 mg tablet TAKE 1 TABLET BY MOUTH 3 TIMES DAILY NEEDED FOR PAIN FOR UP TO 14 DAYS. active Not Available Not Available No t Available amoxicilli n 500 mg capsule Take 1 capsule 3 times a day by oral route for 6 days. 04/24 completed Not Available Not Available Not Available atorvastat in 40 mg tablet TAKE 1 TABLET BY MOUTH EVERY DAY IN THE EVENING active Not Available Not Available No t Available silver sulfadiazi ne 1 % topical cream APPLY A 1/16 INCH (1.5 MM) THICK LAYER TO ENTIRE WOUND AREA BY TOPICAL ROUTE 2 TIMES PER DAY active Not Available Not Available No t Available metformin 500 mg tablet TAKE 2 TABLET BY MOUTH 2 TIMES EVERY DAY WITH MORNING AND EVENING MEALS 12/28 completed Not Available Not Available Not Available butalbital -acetamino phen-caffe ine 50 mg-325 mg-40 mg capsule Take 1 capsule 3 times a day by oral route for 30 days. 01/12 completed Not Available Not Available Not Available atorvastat in 80 mg tablet TAKE 1 TABLET BY MOUTH EVERY DAY AT NIGHT active Not Available Not Available No t Available venlafaxin e ER 75 mg capsule,ex tended release 24 hr TAKE 1 CAPSULE BY MOUTH TWICE DAILY 02/12 completed Not Available Not Available Not Available nicotine 14 mg/24 hr daily transderma l patch Apply 1 patch every day by transder mal route as directed for 30 days. active Not Available Not Available No t Available albuterol sulfate 2.5 mg/3 mL (0.083 %) solution for nebulizati on Inhale 3 mL 3 times a day by nebuliza tion route as directed for 30 days. active Not Available Not Available No t Available ammonium lactate 12 % lotion Apply to both feet daily as needed 10/01 completed Not Available Not Available Not Available loperamide 2 mg capsule four times a day as needed 2012 active Not Available Not Available Not Avai lable trazodone 50 mg tablet TAKE 1 TABLET BY MOUTH EVERYDAY AT BEDTIME active Not Available Not Available No t Available cetirizine 10 mg tablet TAKE 1 TABLET BY MOUTH EVERY DAY active Not Available Not Available No t Available azithromyc in 250 mg tablet TAKE 2 TABLETS BY MOUTH TODAY, THEN TAKE 1 TABLET DAILY FOR 4 DAYS active Not Available Not Available No t Available alprazolam 1 mg tablet TAKE 1 TABLET BY MOUTH ONCE EVERY DAY FOR TREATMEN T OF ANXIETY active Not Available Not Available No t Available ofloxacin 0.3 % eye drops INSTILL 1 DROP INTO OPERATIV E EYE THREE TIMES DAILY - BEGIN 2 DAYS BEFORE SURGERY 12/28 completed Not Available Not Available Not Available valacyclov ir 1 gram tablet TAKE 1 TABLET BY MOUTH EVERY 8 HOURS FOR 7 DAYS 08/09 completed Not Available Not Available Not Available hydrocodon e 5 mg-acetami nophen 325 mg tablet TAKE 1 TABLET BY MOUTH TWICE DAILY FOR MODERATE TO SEVERE PAIN active Not Available Not Available No t Available Nystop 100,000 unit/gram topical powder active Not Available Not Available Not Available fluconazol e 200 mg tablet TAKE ONE TABLET BY MOUTH ON DAY ONE AND ONE TABLET 72 HOURS LATER 07/01 completed Not Available Not Available Not Available glipizide ER 10 mg tablet, extended release 24 hr TAKE 1 TABLET BY MOUTH TWICE A DAY 03/16 completed Not Available Not Available Not Available donepezil 10 mg tablet TAKE 1 TABLET BY MOUTH EVERY DAY 10/01 completed Not Available Not Available Not Available sucralfate 1 gram tablet TAKE 1 TABLET BY MOUTH TWICE A DAY active Not Available Not Available No t Available ondansetro n HCl 4 mg tablet 05/19 completed Not Available Not Available Not Available glipizide 10 mg tablet TAKE 1 TABLET BY MOUTH 2 TIMES EVERY DAY BEFORE A MEAL active Not Available Not Available No t Available famotidine 40 mg tablet TAKE 1 TABLET BY MOUTH EVERY DAY active Not Available Not Available No t Available alendronat e 70 mg tablet TAKE 1 TABLET BY MOUTH EVERY WEEK 10/01 completed Not Available Not Available Not Available gabapentin 400 mg capsule TAKE 1 CAPSULE BY MOUTH FOUR TIMES A DAY 12/28 completed Not Available Not Available Not Available Lantus U-100 Insulin 100 unit/mL subcutaneo us solution INJECT 60 UNITS UNDER THE SKIN TWICE A DAY 12/27 completed Not Available Not Available Not Available Diflucan 150 mg tablet take 1 tablet today, then repeat in 3 days active Not Available Not Available No t Available meclizine 12.5 mg tablet 12/28 completed Not Available Not Available Not Available clopidogre l 75 mg tablet TAKE 1 TABLET BY MOUTH EVERY DAY active Not Available Not Available No t Available amlodipine 5 mg tablet Take 1 tablet twice a day by oral route for 30 days. active Not Available Not Available No t Available ciprofloxa hailee 500 mg tablet TAKE 1 TABLET BY MOUTH TWICE A DAY 12/08 completed Not Available Not Available Not Available hydrocodon e 10 mg-acetami nophen 325 mg tablet TAKE 1 TABLET BY MOUTH TWICE DAILY NEEDED MODERATE TO SEVERE PAIN active Not Available Not Available No t Available aspirin 81 mg tablet,del ayed release TAKE 1 TABLET BY MOUTH EVERY DAY 10/01 completed Not Available Not Available Not Available tramadol 50 mg tablet TAKE 1 TABLET BY MOUTH EVERY 8 HOURS NEEDED active Not Available Not Available No t Available triamcinol one acetonide 0.1 % topical cream APPLY TO FEET DAILY active Not Available Not Available No t Available glimepirid e 2 mg tablet 10/01 completed Not Available Not Available Not Available glimepirid e 1 mg tablet Take 2 tablets twice a day by oral route before meals for 90 days. active Not Available Not Available No t Available pantoprazo le 20 mg tablet,del ayed release TAKE 1 TABLET BY MOUTH TWICE A DAY active Not Available Not Available No t Available ketorolac 0.5 % eye drops INSTILL 1 DROP INTO OPERATIV E EYE THREE TIMES DAILY - BEGIN 2 DAYS BEFORE SURGERY 12/28 completed Not Available Not Available Not Available Nexium 20 mg capsule,de layed release Take 1 capsule every day by oral route. 2013 active Not Available Not Available Not Avai lable nortriptyl ine 25 mg capsule TAKE ONE CAPSULE BY MOUTH AT BEDTIME 12/28 completed Not Available Not Available Not Available hydrocorti sone 2.5 % topical cream with perineal applicator APPLY THIN COAT TO AFFECTED AREA TWICE A DAY 10/01 completed Not Available Not Available Not Available alprazolam 0.5 mg tablet TAKE 1 TABLET BY MOUTH EVERY DAY active Not Available Not Available No t Available Azulfidine 500 mg tablet Take 1 tablet 3 times a day by oral route. 01/12 completed Not Available Not Available Not Available famotidine 20 mg tablet TAKE 1 2 TABLETS BY MOUTH DAILY NEEDED 12/27 completed Not Available Not Available Not Available prednisolo ne acetate 1 % eye drops,susp ension INSTILL 1 DROP INTO OPERATIV E EYE THREE TIMES DAILY - BEGIN AFTER SURGERY 12/28 completed Not Available Not Available Not Available trazodone 100 mg tablet TAKE 1 TABLET BY MOUTH EVERYDAY AT BEDTIME active Not Available Not Available No t Available dicyclomin e 20 mg tablet TAKE 1 TABLET BY MOUTH FOUR TIMES A DAY NEEDED active Not Available Not Available No t Available dexamethas one 1 mg tablet 10/01 completed Not Available Not Available Not Available meclizine 25 mg tablet TAKE 1 TABLET BY MOUTH 4 TIMES A DAY NEEDED 10/01 completed Not Available Not Available Not Available amlodipine 10 mg tablet TAKE 1 TABLET BY MOUTH ONCE DAILY 01/12 completed Not Available Not Available Not Available cephalexin 500 mg capsule TAKE ONE CAPSULE BY MOUTH 4 TIMES A DAY FOR 7 DAYS 09/10 completed Not Available Not Available Not Available pantoprazo le 40 mg tablet,del ayed release TAKE 1 TABLET BY MOUTH TWICE A DAY WILL NEED APPT FOR ADDITION AL REFILLS* * active Not Available Not Available No t Available ranitidine 150 mg tablet TAKE 1 TABLET BY MOUTH TWICE A DAY 03/16 completed Not Available Not Available Not Available lansoprazo le 30 mg capsule,de layed release TAKE ONE CAPSULE BY MOUTH ONE TIME DAILY active Not Available Not Available No t Available lidocaine 5 % topical patch active Not Available Not Available Not Available promethazi ne 25 mg tablet TAKE 1/2 TABLET BY MOUTH EVERY 6 HOURS 12/28 completed Not Available Not Available Not Available metoprolol tartrate 50 mg tablet TAKE 1 TABLET BY MOUTH TWICE A DAY WITH FOOD 12/28 completed Not Available Not Available Not Available indomethac in 50 mg capsule Take 1 capsule twice a day by oral route. active Not Available Not Available No t Available Micardis 40 mg tablet Take 1 tablet every day by oral route for 90 days. active Not Available Not Available No t Available oxybutynin chloride ER 5 mg tablet,ext ended release 24 hr TAKE 1 TABLET BY MOUTH EVERY DAY active Not Available Not Available No t Available gabapentin 300 mg capsule TAKE 1 CAPSULE BY MOUTH THREE TIMES DAILY 12/28 completed Not Available Not Available Not Available omeprazole 20 mg capsule,de layed release TAKE 1 CAPSULE BY MOUTH TWICE DAILY 09/10 completed Not Available Not Available Not Available hydrocodon e 5 mg-acetami nophen 500 mg tablet Take 1 tablet 3 times a day by oral route for 30 days. 03/23 completed called to pharm Not Available Not Available Not Available Nitrostat 0.[address] 1 TABLET (0.4 MG) BY SUBLINGU AL ROUTE AT THE FIRST SIGN OF AN ATTACK; NO MORE THAN 3 TABS ARE RECOMMEN DED WITHIN A 15 MINUTE PERIOD. 12/28 completed Not Available Not Available Not Available lisinopril 5 mg tablet TAKE 1 TABLET BY MOUTH EVERY DAY active Not Available Not Available No t Available gabapentin 100 mg capsule TAKE 3 CAPSULES BY MOUTH EVERY 8 HOURS active Not Available Not Available No t Available ergocalcif kevin (vitamin D2) 1,250 mcg (50,000 unit) capsule TAKE 1 CAPSULE BY MOUTH ONCE WEEKLY FOR 12 WEEKS 10/01 completed Not Available Not Available Not Available Novolog U-100 Insulin aspart 100 unit/mL subcutaneo us solution inject by sliding scale bid (min 4units/d ay, max24 units/da y active Not Available Not Available No t Available lorazepam 1 mg tablet 12/28 completed Not Available Not Available Not Available Optivar 0.05 % eye drops Instill 1 drop 4 times a day by ophthalm ic route for 90 days. 2012 active Not Available Not Available Not Avai lable insulin lispro (U-100) 100 unit/mL subcutaneo us solution INJECT 3 TIMES A DAY AND AT BEDTIME PER SLIDING SCALE PROTOCOL . MAX MEAL TIME DOSE OF 15 UNITS 10/01 completed Not Available Not Available Not Available methylpred nisolone 4 mg tablets in a dose pack 12/28 completed Not Available Not Available Not Available albuterol sulfate HFA 90 mcg/actuat ion aerosol inhaler INHALE 2 PUFFS INTO THE LUNGS EVERY 4 TO 6 HOURS NEEDED FOR 30 DAYS active Not Available Not Available No t Available fluoxetine 20 mg capsule TAKE 1 CAPSULE BY MOUTH EVERY DAY IN THE MORNING active Not Available Not Available No t Available fluticason e propionate 50 mcg/actuat ion nasal spray,susp ension SPRAY 2 SPRAYS INTO EACH NOSTRIL EVERY DAY 10/01 completed Not Available Not Available Not Available dicyclomin e 10 mg capsule TAKE 1-2 CAPSULES BY MOUTH UP TO 4 TIMES A DAY NEEDED 10/01 completed Not Available Not Available Not Available glipizide 5 mg tablet TAKE 1 TABLET BY MOUTH TWICE A DAY BEFORE MEALS 12/28 completed Not Available Not Available Not Available amoxicilli n 875 mg-potassi um clavulanat e 125 mg tablet TAKE 1 TABLET BY ORAL ROUTE EVERY 12 HOURS TAKE WITH FOOD 01/13 completed Not Available Not Available Not Available nicotine 7 mg/24 hr daily transderma l patch APPLY 1 PATCH ONTO THE SKIN ONCE DAILY 12/27 completed Not Available Not Available Not Available Insulin Syringe 0.3 mL 30 once daily as directed active Not Available Not Available No t Available insulin lispro (U-100) 100 unit/mL subcutaneo us pen active Not Available Not Available Not Available escitalopr am 10 mg tablet TAKE 1 TABLET BY MOUTH EVERY DAY 12/28 completed Not Available Not Available Not Available insulin aspart (U-100) 100 unit/mL (3 mL) subcutaneo us pen active Not Available Not Available Not Available cyclobenza bladimir 5 mg tablet TAKE 1 TABLET BY MOUTH TWICE A DAY NEEDED 12/28 completed Not Available Not Available Not Available metoprolol tartrate 25 mg tablet TAKE 1 TABLET BY MOUTH TWICE A DAY active Not Available Not Available No t Available mirtazapin e 7.5 mg tablet active Not Available Not Available Not Available nitrofuran toin monohydrat e/macrocry stals 100 mg capsule TAKE ONE CAPSULE BY MOUTH TWICE DAILY active Not Available Not Available No t Available duloxetine 20 mg capsule,de layed release TAKE 1 CAPSULE BY MOUTH TWICE A DAY 12/28 completed Not Available Not Available Not Available duloxetine 60 mg capsule,de layed release TAKE 1 CAPSULE BY MOUTH EVERY DAY active Not Available Not Available No t Available solifenaci n 10 mg tablet TAKE 1 TABLET BY MOUTH EVERYDAY AT BEDTIME active Not Available Not Available No t Available Calcium 600 + D(3) 600 mg-5 mcg (200 unit) tablet twice daily 12/28 completed Not Available Not Available Not Available Novofine Autocover 30 gauge x 1/3 needle active Not Available Not Available Not Available fenofibrat e 160 mg tablet TAKE 1 TABLET BY MOUTH EVERY DAY 10/01 completed Not Available Not Available Not Available Lyrica 50 mg capsule Take 1 capsule 3 times a day by oral route for 90 days. 2012 active Not Available Not Available Not Avai lable Levemir U-100 Insulin 100 unit/mL subcutaneo us solution INJECT 60 UNITS UNDER THE SKIN TWICE A DAY. active Not Available Not Available No t Available Levemir FlexPen 100 unit/mL (3 mL) solution subcutaneo us insulin pen active Not Available Not Available Not Available Butalbital Compound 50 mg-325 mg-40 mg tablet Take 1 tablet 3 times a day by oral route for 30 days. 2012 active Not Available Not Available Not Avai lable BD Ultra-Fine Short Pen Needle 31 gauge x 5/16 USE NEEDED active Not Available Not Available No t Available Symbicort 160 mcg-4.5 mcg/actuat ion HFA aerosol inhaler TAKE 2 PUFFS BY MOUTH TWICE A DAY active Not Available Not Available No t Available Symbicort 80 mcg-4.5 mcg/actuat ion HFA aerosol inhaler INHALE 1 PUFF BY MOUTH 2 TIMES EVERY DAY active Not Available Not Available No t Available ferrous sulfate 324 mg (65 mg iron) tablet,del ayed release active Not Available Not Available Not Available Lantus Solostar U-100 Insulin 100 unit/mL (3 mL) subcutaneo us pen INJECT 50 UNITS UNDER THE SKIN ONCE DAILY AT BEDTIME active Not Available Not Available No t Available venlafaxin e ER 75 mg tablet,ext ended release 24 hr Take 1 tablet twice a day by oral route. 11/12 completed Not Available Not Available Not Available Dulera 200 mcg-5 mcg/actuat ion HFA aerosol inhaler INHALE 2 PUFFS INTO MOUTH TWICE A DAY 02/24 completed Not Available Not Available Not Available Probiotic twice a day 05/19 completed Not Available Not Available Not Available Suprep Bowel Prep Kit 17.5 gram-3.13 gram-1.6 gram oral solution DIRECTED 07/21 completed Not Available Not Available Not Available Brilinta 90 mg tablet Take 1 tablet twice a day by oral route for 14 days. 2013 active Not Available Not Available Not Avai lable OneTouch Verio test strips USE TO CHECK BLOOD SUGARS 3-4 TIMES A DAY active Not Available Not Available No t Available Myrbetriq 25 mg tablet,ext ended release TAKE 1 TABLET BY MOUTH EVERY DAY 10/01 completed Not Available Not Available Not Available BD Insulin Syringe Ultra-Fine 1 mL 31 gauge x 5/16 USE WITH INSULIN DIRECTED active Not Available Not Available No t Available BD Insulin Syringe Ultra-Fine 0.3 mL 31 gauge x 5/16 USE DIRECTED 10/01 completed Not Available Not Available Not Available BD Insulin Syringe Ultra-Fine 0.5 mL 31 gauge x 10/28 USE WITH INSULIN DIRECTED TWICE DAILY 10/01 completed Not Available Not Available Not Available melatonin 10 mg capsule TAKE 1 CAPSULE BY MOUTH EVERY DAY 12/28 completed Not Available Not Available Not Available Farxiga 10 mg tablet TAKE 1 TABLET BY MOUTH EVERY DAY IN THE MORNING active Not Available Not Available No t Available Farxiga 5 mg tablet TAKE 1 TABLET BY MOUTH EVERY DAY active Not Available Not Available No t Available albiglutid e 30 mg/0.5 mL subcutaneo us pen injector Inject 0.5 mL every week by subcutan eous route. 01/12 completed Not Available Not Available Not Available Spiriva Respimat 2.5 mcg/actuat ion solution for inhalation TAKE 2 PUFFS BY MOUTH EVERY DAY active Not Available Not Available No t Available naloxone 4 mg/actuati on nasal spray CALL 911. ADMINIST ER A SINGLE SPRAY INTRANAS ALLY INTO ONE NOSTRIL UPON SIGNS OF OPIOID OVERDOSE . MAY REPEAT AFTER 3 MINUTES IF NO RESPONSE . active Not Available Not Available No t Available OneTouch Verio Flex Meter 10/01 completed Not Available Not Available Not Available Zenpep 40,000 unit-126,0 00 unit-168,0 00 unit capsule,de layed release TAKE 2 CAPSULES BY MOUTH WITH MEALS AND 1 CAPSULE BY MOUTH WITH A SNACK 10/01 completed Not Available Not Available Not Available Zenpep 25,000 unit-79,00 0 unit-105,0 00 unit capsule,de layed release TAKE 1 CAPSULE BY MOUTH TWICE A DAY active Not Available Not Available No t Available OneTouch Delica Plus Lancet 33 gauge 10/01 completed Not Available Not Available Not Available Flucelvax Quad (PF) 60 mcg (15 mcg x 4)/0.5 mL IM syringe TO BE ADMINIST ERED BY PHARMACI ST FOR IMMUNIZA TION 12/28 completed Not Available Not Available Not Available FreeStyle Robert 2 Sensor kit CHANGE SENSOR EVERY 14 DAYS 10/01 completed Not Available Not Available Not Available FreeStyle Robert 2 [place] 10/01 completed Not Available Not Available Not Available Fluzone High-Dose Quad (PF) 240 mcg/0.7 mL IM syringe PHARMACY ADMINIST ERED 12/28 completed Not Available Not Available Not Available Trelekelly Ellipta 200 mcg-62.5 mcg-25 mcg powder for inhalation INHALE 1 BLISTER EVERY DAY active Not Available Not Available No t Available Easy Touch Safety Pen Needle 30 gauge x 10/28 active Not Available Not Available Not Available Vitals Date Recorded Body height Heart rate Oxygen saturation Oxygen saturation in Arterial blood by Pulse oximetry Body temperature Systolic blood pressure Diastolic blood pressure Provider Name and Address Organization Details Last Updated DateTime 4 160.02 cm 83 /min 99 % 99 % 97.2 [degF] 132 mm[Hg] 63 mm[Hg] Zeeshan Subramanian RN [facility] [employer] [facility] 4 15:42:24 Date Recorded Body height Body temperature Oxygen saturation Oxygen saturation in Arterial blood by Pulse oximetry Heart rate Systolic blood pressure Diastolic blood pressure Provider Name and Address Organization Details Last Updated DateTime 4 160.02 cm 97.7 [degF] 97 % 97 % 72 /min 137 mm[Hg] 66 mm[Hg] Zeeshan Subramanian RN [facility] [employer] [facility] 4 15:11:25 Date Recorded Body height Heart rate Respiratory rate Body temperature Oxygen saturation Oxygen saturation in Arterial blood by Pulse oximetry Systolic blood pressure Diastolic blood pressure Provider Name and Address Organization Details Last Updated DateTime 5 160.02 cm 68 /min 18 /min 98.3 [degF] 96 % 96 % 142 mm[Hg] 72 mm[Hg] Clemencia Manzanares RN [facility] [employer] [facility] 5 12:53:18 Date Recorded Body height Body temperature Oxygen saturation Oxygen saturation in Arterial blood by Pulse oximetry Heart rate Systolic blood pressure Diastolic blood pressure Provider Name and Address Organization Details Last Updated DateTime 4 160.02 cm 98.5 [degF] 95 % 95 % 78 /min 142 mm[Hg] 56 mm[Hg] Eun Bernstein RN [facility] [employer] [facility] 4 15:44:05 Date Recorded Body height Body temperature Body mass index (BMI) Body weight Heart rate Systolic blood pressure Diastolic blood pressure Provider Name and Address Organization Details Last Updated DateTime 5 160.02 cm 98 [degF] 21.3 kg/m2 93489.0 8 g 83 /min 143 mm[Hg] 77 mm[Hg] Marcin Gunderson [place] - [facility] [place] [employer] [facility] 5 11:23:08 Social History Question Answer Notes LastModified by Organizat ion Details LastModified Time Tobacco Smoking Status Current Every Day Smoker Not Available [facility] 08/13/2022 02:28:17 What Is Your Level Of Caffeine Consumption? Moderate [id number] Information not available 08/13/2022 In The 14 Days Before Symptom Onset, Have You Had Close Contact With A Laboratory-confirm ed COVID-19 While That Case Was Ill? No [id number] Information not available 08/13/2022 In The 14 Days Before Symptom Onset, Have You Had Close Contact With A Person Who Is Under Investigation For COVID-19 While That Person Was Ill? No [id number] Information not available 08/13/2022 What Type Of Diet Are You Following? REGULAR [id number] Information not available 08/13/2022 Do You Have An Electrostatic Air Filter? No Information not available 10/09/2022 Do You Have A Humidifier? No Information not available 10/09/2022 Where Do You Live? Apartment Inform ation not available 10/09/2022 Do You Have Moisture Problems In Your Home? No Information not available 10/09/2022 What Was The Date Of Your Most Recent Tobacco Screening? 11/08/2024 [email or web address] Information not available 11/08/2024 Do You Have Any Pets? Yes [id number] Information not available 08/13/2022 What Is Your Relationship Status? [id number] Information not available 08/13/2022 Do You Use Your Seat Belt Or Car Seat Routinely? Yes Information not available 10/09/2022 Do You Have Smoke And Carbon Monoxide Detectors In Your Home? Yes Information not available 10/09/2022 At What Age Did You Start Smoking Tobacco? 16 [id number] Information not available 08/13/2022 Are You Passively Exposed To Smoke? No Information no t available 10/09/2022 How Much Tobacco Do You Smoke? 0.5 PPD [id number] Information not available 08/13/2022 Do You Use Sunscreen Routinely? No Information not available 10/09/2022 How Many Years Have You Smoked Tobacco? 50 [id number] Information not available 08/13/2022 Have You Recently Traveled Abroad? No [id number] Information not available 08/13/2022 Do You Have Any Dietary Restrictions? No [id number].[id number] 1190 Information not available 08/13/2022 Sex: Female Functional Status Question Answer Note LastModified by Organizat ion Details LastModified Time Do you use any illicit or recreational drugs? No [id number] Information not available 08/13/2022 What is your level of alcohol consumption? None [id number].[id number] 1895 Information not available 08/13/2022 Do you or have you ever used smokeless tobacco? Never used smokeless tobacco MIGRATION.[id number] Information not available 08/13/2022 Have you been exposed to chemicals or toxins? No just the mill Information not available 10/09/2022 Do you or have you ever used e-cigarettes or vape? Never used electronic cigarettes MIGRATION.[id number] Information not available 08/13/2022 What is your exercise level? None [id number].[id number] Information not available 08/13/2022 Mental Status None recorded. Family History Nothing Reported. Medical History Condition Response ARTHRITIS Y HEADACHES/MIGRAINES Y DIZZINESS Y HEART DISEASE/HEART PROBLEMS Y SKIN PROBLEMS Y HYPERTENSION Y HIGH CHOLESTEROL / HYPERLIPIDEMIA Y EYE PROBLEMS Y GERD/NAUSEA Y ANEMIA/BLOOD DISORDER Y BLOOD CLOTS Y FIBROMYALGIA Y OSTEOPOROSIS Y DEPRESSION (INCLUDING POST ) Y BOWEL PROBLEMS Y BACK / NECK PROBLEMS Y Gynecological HistoryNo gynecological history recorded. Obstetrics History GPAL:G 0 P 0 0 0 0 Immunizations Vaccine Type Date Status Note Provider Nam e and Address Organization Details Recorded Time COVID-19, mRNA, LNP-S, PF, 30 mcg/0.3 mL dose 1 completed Not Available [facility] 08/13/2022 03:03:47 COVID-19, mRNA, LNP-S, PF, 30 mcg/0.3 mL dose 1 completed Not Available [facility] 08/13/2022 03:03:47 Influenza, split virus, trivalent, preservative 1 completed Not Available [facility] 08/13/2022 03:03:47 Influenza, split virus, trivalent, preservative 5 completed Not Available [facility] 08/13/2022 03:03:47 Influenza, high-dose, quadrivalent, PF 2 completed Not Available [facility] 08/13/2022 03:03:48 Influenza, split virus, quadrivalent, preservative 6 completed Not Available [facility] 08/13/2022 03:03:48 pneumococcal polysaccharide PPV23 6 completed Not Available [facility] 08/13/2022 03:03:48 Influenza, split virus, quadrivalent, PF 5 completed Not Available [facility] 08/13/2022 03:03:49 Past Encounters Encounter ID Performer Location Encounter Start Date Encounter Closed Date Diagnosis/Indication Diagnosis SNOMED-CT Code Diagnosis ICD10 Code Diagnosis Note [id number] [facility] _ATHENA_M IGRATION_ DEFAULT_1 _1 , 08/24/2020 00:00:00 08/27/2020 14:20:41 [id number] [facility] [address] [address] 10/05/2020 00:00:00 10/05/2020 16:00:09 [id number] [facility] _ATHENA_M IGRATION_ DEFAULT_1 _1 , 11/30/2020 00:00:00 12/06/2020 09:06:51 [id number] [facility] [place] [address] [place] [address] 12/28/2020 00:00:00 12/28/2020 14:30:59 [id number] [facility] [place] [address] [place] [address] 02/28/2021 00:00:00 02/28/2021 12:44:03 [id number] [facility] _ATHENA_M IGRATION_ DEFAULT_1 _1 , 03/08/2021 00:00:00 03/10/2021 20:39:06 [id number] [facility] [place] [address] [place] [address] 05/30/2021 00:00:00 05/30/2021 15:28:59 [id number] [facility] _ATHENA_M IGRATION_ DEFAULT_1 _1 , 07/05/2021 00:00:00 07/07/2021 21:34:24 [id number] HEIDI Graves [facility] [place] [address] [place] [address] 10/01/2021 00:00:00 10/01/2021 13:23:49 [id number] [facility] _ATHENA_M IGRATION_ DEFAULT_1 _1 , 10/04/2021 00:00:00 10/06/2021 16:01:20 [id number] HEIDI Graves [facility] [place] [address] [place] [address] 12/27/2021 00:00:00 12/27/2021 14:42:59 [id number] [facility] _ATHENA_M IGRATION_ DEFAULT_1 _1 , 01/03/2022 00:00:00 01/06/2022 08:34:48 [id number] HEIDI Graves [facility] [place] [address] [place] [address] 02/07/2022 00:00:00 02/07/2022 12:33:58 [id number] Sonya Guo MD [facility] [place] [address] [place] [address] 04/07/2022 00:00:00 04/07/2022 20:22:19 [id number] HEIDI Graves [facility] [place] [address] [place] [address] 05/16/2022 00:00:00 05/16/2022 15:43:00 [id number] Navin Ramos DPM [facility] [place] [address] [place] [address] 05/22/2022 00:00:00 05/22/2022 11:41:00 [id number] [facility] [place] [address] [address] 07/04/2022 00:00:00 07/04/2022 14:12:43 [id number] Sonya Guo MD [facility] [place] [address] [address] 07/29/2022 00:00:00 07/29/2022 12:20:08 [id number] HEIDI Graves [facility] [place] [address] [address] 08/01/2022 00:00:00 08/01/2022 14:48:11 [id number] Navin Ramos DPM [facility] [place] [address] [address] 08/28/2022 11:43:07 08/28/2022 13:53:36 Diabetes mellitus 14234951 E11.9 Patient educated on neuropathy , diabetes, diabetic diet, and daily foot exams. Patient is to check feet daily for new wounds, blisters, redness to prevent infection and ulceration s to the feet. Patient will return to clinic in 3 months for diabetic foot workup. Dystrophia unguium 97289 009 L60.3 Nails 1 through 10 were debrided with sharp mechanical debridemen t without incident. Nails were debrided and greater than 50% length and thickness where needed. Unable to cut own toenails [id number] Z74.1 [id number] HEIDI Graves JeffCh[facility] [place] [address] [address] 09/05/2022 11:09:01 09/08/2022 08:31:23 Multiple nodules of lung 153029256 R91.8 LDCT completed 12/25/21 with 10mm nodular area to RLL adjacent to david.Also with 5 mm nodule and several to LLLPET-CT 01/2022 with no hypermetab olic lung abnormalit yNo uptake in any lung nodule - cluster to RLL measures approximat rupal 7mmReviewe d all chest imaging.No dular density to RLL appears slightly bigger but 10mm nodular density is resolved.T his area was previously PET-CT negativeRe peat CT chest 06/2022 with nodule to RLL at 7.5 mm and several punctuate nodules in RLL and LLL measuring 2-3mmI have discussed this with Maureen and stressed the importance of further workup with labs and sputumsShe did not complete theseRe-or dered todayI have spoken with her caregiver who drove her here today and she agrees to go straight to [facility] after OV to complete all testing.R TC in 2 weeks to discuss.Wendy y need bronchosco py - discussed with Maureen - she understand s and agrees Asthma-chr onic obstructive pulmonary disease overlap syndrome [id number] 3823436 J44.9 PFT 10/2021 with moderate obstructio nGood bronchodil ator responseCo ntinue Trelegy Ellipta 200 one puff daily Obstructiv e sleep apnea syndrome 15617056 G47.33 Not compliant with PAP use and uninterest ed in troublesho oting History of SARS-CoV-2 29 [id number] 06539884 Z86.16 Home test + March 2022 Nicotine dependence 5629 4008 Z87.891 Smoking cessation counseling and techniques reviewed at length. Literature reviewed. Avoid triggers, support groups. Distractio n techniques Greater than 3 but less than 10 minutes spent discussing cessation. Declines NRT. Discussed Rx options if needed in the future.CT as above [id number] Derrick Costa MD [facility] [place] [facility] [address] [place] [address] 09/18/2022 10:48:42 09/18/2022 12:17:59 Impacted cerumen of bilateral ears [id number] 604071 H61.23 Dysphagia 04095474 R13.1 0 [id number] Ava Knowles, [employer]- [facility] [place] [facility] [address] [place] [address] 09/19/2022 10:50:25 09/19/2022 12:43:02 Multiple nodules of lung 360480147 R91.8 LDCT completed 12/25/21 with 10mm nodular area to RLL adjacent to david.Also with 5 mm nodule and several to LLLPET-CT 01/2022 with no hypermetab olic lung abnormalit yNo uptake in any lung nodule - cluster to RLL measures approximat rupal 7mmReviewe d all chest imaging.No dular density to RLL appears slightly bigger but 10mm nodular density is resolved.T his area was previously PET-CT negativeRe peat CT chest 06/2022 with nodule to RLL at 7.5 mm and several punctuate nodules in RLL and LLL measuring 2-3mmAFB sputum preliminar y results negative d4Dvpojs culture is pending.HP panel, legionella , histoplasm a, blastomyce s, CHRISTY, VIDAL all normalAppa rently [place]-CTWill refer to Dr Paniagua to evaluate for bronchosco py with brushing/w ashing etc as per his discretion . Asthma-chr onic obstructive pulmonary disease overlap syndrome [id number] 4810135 J44.9 CAT 31ACT 14PFT 10/2021 with moderate obstructio nGood bronchodil ator responseCo ntinue Trelegy Ellipta 200 one puff daily Obstructiv e sleep apnea syndrome 35427743 G47.33 Not compliant with PAP use and uninterest ed in troublesho otingDiscu ssed the risks of uncorrecte d SUSAN, including History of SARS-CoV-2 29 64204377 37456671 Z86.16 Home test + March 2022 Nicotine dependence 5629 4008 Z87.891 Smoking cessation counseling and techniques reviewed at length. Literature reviewed. Avoid triggers, support groups. Distractio n techniques Greater than 3 but less than 10 minutes spent discussing cessation. Declines NRT. Discussed Rx options if needed in the future.CT as above Dyspnea on exertion 6084 5006 R06.09 Alpha 1 normalEosi nophils normalRAST with multiple positives, in chart - Allergy pill dailyQuant iferon GOLD negativeIG A and IGM normalIGE normalIGG total and subclass 1 and 2 are low. She agrees to recheck in 6 months.I have a again recommende d pulmonary rehab, she declinesSh e must quit smokingSat urations 97% on room air at rest todaySix minute walk 06/2022 was WNL [id number] Jame Paniagua MD [facility] [place] [address] [facility] [address] [place] [address] 10/09/2022 10:44:03 10/10/2022 08:26:20 Smoker 16946004 F17.218 F17.219 Z87.891 Multiple n odules of lung 574560495 R91.8 R06.00 R05.9 T78.40XA D89.9 Moderate c hronic obstructive pulmonary disease 733364491 J44.9 [id number] Ava Knowles, [facility] [place] [address] [place] [address] 12/09/2022 11:03:22 12/09/2022 14:33:14 Multiple nodules of lung 543021405 R91.8 LDCT completed 12/25/21 with 10mm nodular area to RLL adjacent to david.Also with 5 mm nodule and several to LLLPET-CT 01/2022 with no hypermetab olic lung abnormalit yNo uptake in any lung nodule - cluster to RLL measures approximat rupal 7mmReviewe d all chest imaging.No dular density to RLL appeared slightly bigger but 10mm nodular density is resolved.T his area was previously PET-CT negative 2Rep eat CT chest 06/2022 with nodule to RLL at 7.5 mm and several punctuate nodules in RLL and LLL measuring 2-3mmAFB sputum preliminar y results negative q6Alhhhk culture pending, staff has been unable to get these results.HP panel, legionella , histoplasm a, blastomyce s, CHRISTY, VIDAL all normalAppa rently no facility [place] and [place] for PET-CTRefe rred to Dr Paniagua to evaluate for bronchosco py with brushing/w ashing etc as per his discretion .She was then referred to Dr Young at [facility].I am awaiting results of BX, although she tells me this is cancer. Asthma-chr onic obstructive pulmonary disease overlap syndrome [id number] 8712772 J44.9 CAT 30ACT 15PFT 10/2021 with moderate obstructio nGood bronchodil ator responseCo ntinue Trelegy Ellipta 200 one puff dailyShe is aware to rinse and spit after use Dyspnea on exertion 6084 5006 R06.09 Alpha 1 normalEosi nophils normalRAST with multiple positives, in chart - Allergy pill dailyShe has seen allergistQ uantiferon GOLD negativeIG A and IGM normalIGE normalIGG total and subclass 1 and 2 are low.AI serologies normalI have a again recommende d pulmonary rehab, she declinesSh e must quit smokingSat urations 95% on room air at rest todaySix minute walk 06/2022 was WNL Obstructiv e sleep apnea syndrome 34474111 G47.33 Not compliant with PAP use and uninterest ed in troublesho otingDiscu ssed the risks of uncorrecte d SUSAN, including History of SARS-CoV-2 29 39879718 70475315 Z86.16 Home test + March 2022 Nicotine dependence 5629 4008 Z87.891 Smoking cessation counseling and techniques reviewed at length. Literature reviewed. Avoid triggers, support groups. Distractio n techniques Greater than 3 but less than 10 minutes spent discussing cessation. Declines NRT. Discussed Rx options if needed in the future.CT as above [id number] Ava Knowles, [facility] [place] [address] [place] [address] 01/13/2023 10:57:19 01/13/2023 11:48:24 Multiple nodules of lung 344373419 R91.8 LDCT completed 12/25/21 with 10mm nodular area to RLL adjacent to david.Also with 5 mm nodule and several to LLLPET-CT 01/2022 with no hypermetab olic lung abnormalit yNo uptake in any lung nodule - cluster to RLL measures approximat rupal 7mmReviewe d all chest imaging.No dular density to RLL appeared slightly bigger but 10mm nodular density is resolved.T his area was previously PET-CT negative ep eat CT chest 06/2022 with nodule to RLL at 7.5 mm and several punctuate nodules in RLL and LLL measuring 2-3mmAFB sputum preliminar y results negative t3Oiossr culture pending, staff has been unable to get these results.HP panel, legionella , histoplasm a, blastomyce s, CHRISTY, VIDAL all normalAppa rently [place] and [place] PET-CTRefe rred to Dr Paniagua to evaluate for bronchosco py with brushing/w ashing etc as per his discretion .She was then referred to Dr Young at [facility].I still do not have biopsy results.Sc heduled for PET CT and follow with Dr Young Asthma-chr onic obstructive pulmonary disease overlap syndrome [id number] J44.9 CAT 28ACT 12PFT 10/2021 with moderate obstructio nGood bronchodil ator responseCo ntinue Trelegy Ellipta 200 one puff dailyShe is aware to rinse and spit after useCheck PFT and walk testing Dyspnea on exertion 6084 5006 R06.09 Alpha 1 normalEosi nophils normalRAST with multiple positives, in chart - Allergy pill dailyShe has seen allergistQ uantiferon GOLD negativeIG A and IGM normalIGE normalIGG total and subclass 1 and 2 are low.AI serologies normalI have a again recommende d pulmonary rehab, she declinesSh e must quit smokingSat urations 95% on room air at rest todaySix minute walk 06/2022 was WNL Obstructiv e sleep apnea syndrome 52077850 G47.33 Not compliant with PAP use and uninterest ed in troublesho otingDiscu ssed the risks of uncorrecte d SUSAN, including History of SARS-CoV-2 29 [id number] 36156445 Z86.16 Home test + March 2022 Nicotine dependence 5629 4008 Z87.891 Smoking cessation counseling and techniques reviewed at length. Literature reviewed. Avoid triggers, support groups. Distractio n techniques Greater than 3 but less than 10 minutes spent discussing cessation. Declines NRT. Discussed Rx options if needed in the future.CT as above [id number] Navin Ramos DPM [facility] [place] [address] [address] 02/03/2023 17:12:55 02/11/2023 17:01:16 Peroneal tendinitis 85034145 M76.71 M76.72 educated on conditions tretching exercises reviewed and dispensedC ontinue supportive shoe gearRice therapy daily Dystrophia unguium 23321 009 L60.3 Nails 1 through 10 were debrided with sharp mechanical debridemen t without incident. Nails were debrided and greater than 50% length and thickness where needed. [id number] Navin Ramos DPM [facility] [place] [address] [address] 03/17/2023 12:25:13 03/17/2023 14:30:53 Peroneal tendinitis 97404277 M76.71 M76.72 educated on conditions tretching exercises reviewed and dispensedr ecommend more supportive shoe gear such as new balanceRic e therapy dailyfollo w-up after therapy [id number] Ava Knowles, PROGRAM MANAGER [employer] [place] [address] [place] [address] 04/17/2023 11:46:32 04/17/2023 12:49:12 Multiple nodules of lung 685294523 R91.8 LDCT completed 12/25/21 with 10mm nodular area to RLL adjacent to david.Also with 5 mm nodule and several to LLLPET-CT 01/2022 with no hypermetab olic lung abnormalit yNo uptake in any lung nodule - cluster to RLL measures approximat rupal 7mmReviewe d all chest imaging.No dular density to RLL appeared slightly bigger but 10mm nodular density is resolved.T his area was previously PET-CT negative ep eat CT chest 06/2022 with nodule to RLL at 7.5 mm and several punctuate nodules in RLL and LLL measuring 2-3mmAFB sputum preliminar y results negative m3Yncgqf culture pending, staff has been unable to get these results.HP panel, legionella , histoplasm a, blastomyce s, CHRISTY, VIDAL all normalAppa rently [place] and she was not agreeable [place] for PET-CTRefe rred to Dr Paniagua to evaluate for bronchosco py with brushing/w ashing etc as per his discretion .She was then referred to Dr Young at [facility].I still do not have biopsy results, however she has had VATS right lower lobectomy for cancer diagnosis Asthma-chr onic obstructive pulmonary disease overlap syndrome [id number] J44.9 CAT 28ACT 12PFT 10/2021 with moderate obstructio nGood bronchodil ator responseCo ntinue Trelegy Ellipta 200 one puff dailyShe is aware to rinse and spit after useAdvised vaccinesDi scussed reportable signs and symptoms Dyspnea on exertion 6084 5006 R06.09 Alpha 1 normalEosi nophils normalRAST with multiple positives, in chart - Allergy pill dailyShe has seen allergistQ uantiferon GOLD negativeIG A and IGM normalIGE normalIGG total and subclass 1 and 2 are low.AI serologies normalI have a again recommende d pulmonary rehab, she declinesSi x minute walk 06/2022 was WNL, again on discharge from hospitaliz ation last month Obstructiv e sleep apnea syndrome 11975596 G47.33 Not compliant with PAP use and uninterest ed in troublesho otingDiscu ssed the risks of uncorrecte d SUSAN, including History of SARS-CoV-2 29 15281412 26502556 Z86.16 Home test + March 2022 [id number] Navin Ramos DPM [facility] [address] [place] [address] 06/24/2023 16:37:17 06/24/2023 18:00:20 Skin eschar 821882596 R23.4 Apply Betadine wet-to-dry dressing dailyOfflo adingFollo w-up one-week Peripheral arterial occlusive disease 568467790 I73.9 Vascular appointmen [facility] Pain of to e of right foot [id number] 25809 M79.674 Fourth and 5th toes-right [id number] [facility] [address] [place] [address] 07/01/2023 15:19:19 07/01/2023 16:07:29 Skin eschar 815741078 R23.4 Debrided without incidentSi lvadene cream to the woundConti nue dailyFollo w-up 1 week Peripheral arterial occlusive disease 331352992 I73.9 Sandrita called and seeing pt Today, sent to his office nowMottled changes 4th 5th toe right Pain of to e of right foot 5734208274 91539 M79.674 Fourth and 5th toes-right [id number] [facility] [address] [place] [address] 07/08/2023 15:18:08 07/08/2023 15:40:20 Skin eschar 277755642 R23.4 Resolved Peripheral arterial occlusive disease 460730322 I73.9 Sandrita vascular, follow recommenda tionVascul ar ultrasound scheduled for Monday 07/10Mole d changes 4th 5th toe rightfollo w up in two weeks Pain of to e of right foot 2518049456 08313 M79.674 Fourth and 5th toes-right [id number] [facility] [address] [place] [address] 07/22/2023 15:01:15 08/05/2023 09:09:01 Peripheral arterial occlusive disease 191976885 I73.9 Sandrita vascular, follow recommenda tionVascul ar ultrasound scheduled for Monday 07/10Mole d changes 4th and 5th toe, right-impr oveddried blister to 4-5th toesfollow up in two weeks Pain of to e of right foot 6931162855 87935 M79.674 Fourth and 5th toes-right [id number] [facility] [address] [place] [address] 08/19/2023 15:25:57 09/02/2023 10:50:12 Peripheral arterial occlusive disease 919518121 I73.9 Vardi vascular, follow recommenda tionVascul ar ultrasound scheduled for Monday 07/10Mo d changes 4th and 5th toe, right-impr oveddried blister to 4-5th toesfollow up in two weeks regular office Pain of to e of right foot 0871453079 35997 M79.674 Fourth and 5th toes-right [id number] Navin Ramos DPM [facility] [address] [place] [address] 08/09/2024 12:33:35 08/09/2024 13:47:08 Dystrophia unguium 04985256 L60.3 Nails 1 through 10 were debrided with sharp mechanical debridemen t without incident. Nails were debrided and greater than 50% length and thickness where needed. Pain in toe 927497337 M7 9.676 Peripheral arterial occlusive disease 636025635 I73.9 Vardi vascular, follow recommenda tionVascul ar ultrasound scheduled for Monday 07/10Mole d changes 4th and 5th toe, right-impr oveddried blister to 4-5th toesfollow up in two weeks regular office [id number] Navin Ramos DPM [facility] [place] [address] [facility] [address] [place] [address] 11/08/2024 11:15:40 11/09/2024 09:47:47 Neuropathy due to type 2 diabetes mellitus [id number] 13283 E11.40 L60.0 M79.676 Patient educated on neuropathy , diabetes, diabetic diet, and daily foot exams. Patient is to check feet daily for new wounds, blisters, redness to prevent infection and ulceration s to the feet. Patient will return to clinic in 3 months for diabetic foot workup. Dystrophia unguium 21659 009 L60.3 Nails 1 through 10 were debrided with sharp mechanical debridemen t without incident. Nails were debrided and greater than 50% length and thickness where needed. Bunion 286242736 M21.61 1 Continue conservati ve offloading recommend wide soft toe box style shoe gearmonito r for wounds if present seek medical attention immediatel y Hammer toe 602393779 M20 .41 as above Health Concerns Section Related Observation LastModified by Organization Detai ls LastModified Time None Recorded Concern Status LastModified by Organization Details LastModified Time None Recorded Advance Directives Directive None Recorded Payers Insurance Date Sequence Insurance Name Policy Number Policy Martinez Covered Member ID Martinez Member ID Guarantor Name 11/05/2024 1 [facility] (MEDICARE REPLACEMENT/A DVANTAGE - PPO) [id number] Maureen Real Zheng [id number] Maureen Addie Calzada 08/09/2024 2 [place] Maureen Real Saskiaaj [id number] Maureen Calzada 11/05/2024 2 [facility] - DOS ON OR AFTER 2020 - DUAL ELIGIBLE (MEDICARE REPLACEMENT/A DVANTAGE - HMO) [id number] Maureen Calzada [id number] Maureen Calzada 08/09/2024 1 [place] Maureen Farias Zheng [id number] Maureen Real Zheng Notes Date Note Type Note Provider Name and Address Organization Details Recorded Time 07/08/2023 text/html . Patient is a 68-year-old female who returns for ischemic changes and pain to her right 4th and 5th toes. Patient has mottling of the toes with pain. Patient is scheduled to see vascular on Thursday of this week as well as undergoing ultrasound. Patient has been taking tramadol to control her pain which has helped. Patient denies any open wounds or infection. Patient states when she is walking it causes more pain. Patient denies any other complaints. Navin Ramos DPM [address], [place], [address], [employer] 07/08/2023 15:52:15 07/22/2023 text/html Patient is 68-year-old female, who present the office with complaints of pain to her to the secondary to pray for arterial disease. Patient denies any open wounds, but states that she continues to have severe pain. Patient has not yet been evaluated by Vascular and is Getting an appointment. Patient denies any other complaints. Navin Ramos DPM [address], [place], [address], [employer] 07/30/2023 14:22:37 08/19/2023 text/html Patient is a 68-year-old female, who returns in the office for follow up on profile arterial disease to the right lower extremity to which she had gangrenous lesions of the fifth and fourth toe, which have completely sluff off. Patient has no open wounds and has audible Doppler vessels to the artery, post tibial artery, inter, tibial artery of the right. Patient states that her pain level is better, but she still has some discomfort in the lower leg. I did recommend that the patient follow up with her primary care doctor for pain management referral. Patient is also recommended to follow up with her vascular surgeon. Patient was also recommended to discontinue smoking, which she states she continues to smoke. Navin Ramos DPM [address], [place], [address], [employer] 09/02/2023 10:36:26 08/09/2024 text/html . Patient is a 69-year-old female who returns for routine foot care. Patient states she has elongated painful toenails. Patient denies any other complaints. Navin Ramos DPM [address], [place], [address], [employer] 08/09/2024 13:10:16 11/08/2024 text/html . Patient is a 69-year-old female she presents the office with multiple complaints. Patient states overall she is here for routine foot care. Patient states she continues to have significant discomfort secondary to neuropathy of the lower extremity. Patient currently is on gabapentin and pain medication. I did recommend that she follow-up with a highway painter. Patient states that she also has pain in her right lung when she coughs. Patient states that she was seen by Pulmonary to which she had surgery on lung nodules. I did recommend that she follow-up with her garbage person for this condition. Patient states that she is going to go to the emergency room as she does not have any follow-up with the garbage person secondary to transportation. Patient denies any other complaints. Navin Ramos DPM [address], [place], [address], [employer] 11/08/2024 11:57:59 OBGyn Episode No OBEpisode recorded.
[2024-11-24 12:49] LABS: Hemoglobin A1C 9.3 % (<5.7)
[2024-11-24 12:52] LABS: Alanine Aminotransferase 16 U/L (6-35); Albumin Level 4.3 g/dL (3.5-5.1); Alkaline Phosphatase 103 U/L (38-126); Anion Gap 7 mmol/L (4-12); Aspartate Amino Transferase 23 U/L (14-36); Bilirubin,Total 0.4 mg/dL (0.2-1.3); Blood Urea Nitrogen 18 mg/dL (7-17); Calcium 9.4 mg/dL (8.4-10.2); Carbon Dioxide 27 mmol/L (22-30); Chloride 104 mmol/L (98-107); Cholesterol 104 mg/dL (0-200); Estimated Glomerular Filt Rate > 60; Glucose 335 mg/dL (65-110); HDL Direct 45 mg/dL; Potassium 4.8 mmol/L (3.4-5.0); Sodium 138 mmol/L (137-145); Triglycerides 180 mg/dL (<150)
[2024-11-24 12:54] LABS: Anisocytosis 1+; Hypochromasia 1+; Platelet Estimate Adequate (Adequate); Schistocytes None Seen
[2024-11-24 13:04] LABS: LDL Cholesterol Direct 38 mg/dL
[2024-11-24 13:05] LABS: MALB Creatinine Ratio 103.5 mg/g (0-30); Microalbumin Urine Random 44.5 mg/L (0-16.7)
[2024-11-24 13:34] LABS: Hepatitis C Virus Antibody Negative (Negative)
== END 2024-11-24 11:42 | disposition home or self-care (01) ==
PROVIDERS: PCP Family Medicine; Visit Provider Family Medicine
DX: Z12.31 Encounter for screening mammogram for malignant neoplasm of breast (principal); E11.42 Type 2 diabetes mellitus with diabetic polyneuropathy; E78.5 Hyperlipidemia, unspecified; Z11.59 Encounter for screening for other viral diseases
CPT/HCPCS: 36415; 77063; 77067; 80053; 80061; 82043; 83036; 85025; 86803